=== PATIENT | female | born 1965 | race Caucasian/White ===

== ENCOUNTER → 2020-06-08 15:34 | Outpatient (CLI) | payer OTHER, BC, SELFPAY ==
--- NOTE | ~2020-06-08 | MM_ITS ---
EXAMINATION: MM screening [facility] BI w en HISTORY: Screening TECHNIQUE: Craniocaudal and mediolateral oblique 3-D tomosynthesis images were obtained and synthetic 2-D images were generated. CAD analysis was submitted and interpreted. COMPARISON: Comparison to multiple prior studies sequentially, with oldest reviewed study dated 02/25. BREAST PARENCHYMAL COMPOSITION: There are scattered areas of fibroglandular density. FINDINGS: There is no evidence of suspicious mass, calcification, or architectural distortion to sugg est malignancy in either breast. There has been no suspicious interval change. IMPRESSION: 1. No mammographic evidence of malignancy. 2. Recommend routine screening mammography in one year. BI-RADS Category 1: Negative Reviewed, dictated and finalized at location A. [facility] [employer]
== END ==
PROVIDERS: Visit Provider Nurse Practitioner
DX: Z12.31 Encounter for screening mammogram for malignant neoplasm of breast (principal)
CPT/HCPCS: 77063; 77067

== ENCOUNTER → 2022-04-01 16:54 | Outpatient (CLI) | payer OTHER, BC, SELFPAY ==
--- NOTE | ~2022-04-01 | MM_ITS ---
EXAMINATION: MM screening [facility] BI w en HISTORY: Screening mammogram TECHNIQUE: Craniocaudal and mediolateral oblique 3-D tomosynthesis images were obtained and synthetic 2-D images were generated. CAD analysis was submitted and interpreted. COMPARISON: 06/08/2020, 05/18/2019, 05/15/2018 BREAST PARENCHYMAL COMPOSITION: The breasts are almost entirely fatty. FINDINGS: There is no suspicious mass, calcification, or architectural distortion to suggest malignan cy in either breast. There has been no suspicious interval change. IMPRESSION: 1. No mammographic evidence of malignancy. 2. Recommend routine screening mammography in one year. BI-RADS Category 1: Negative Reviewed, dictated and finalized at location A.
== END ==
PROVIDERS: PCP Internal Medicine; Visit Provider Obstetrics & Gynecology Gynecology
DX: Z12.31 Encounter for screening mammogram for malignant neoplasm of breast (principal)
CPT/HCPCS: 77063; 77067

== ENCOUNTER 2023-07-21 12:02 | Outpatient (CLI) | payer OTHER, SELFPAY ==
--- NOTE | ~2023-07-21 | DEXA_ITS ---
Bone Density Report Name: HUMBERTO BURTON Age: 58 Sex: Female Ethnicity: White Date of : 1965 Indication: postmenopausal; screening for osteoporosis; Referring Provider: Sherry Lema Study: Bone densitometry was performed. Exam Date: July 21, 2023 Accession number: [id number] Bone Density: Region BMD T-score Z-score Classification AP Spine(L1-L4) 1.052 0.0 1.5 Normal Femoral Neck (Left) 0.768 -0.7 0.6 Normal Total Hip (Left) 0.927 -0.1 0.8 Normal Femoral Neck (Right) 0.759 -0.8 0.5 Normal Total Hip (Right) 0.836 -0.9 0.1 Normal Femoral Neck Mean 0.763 -0.8 0.5 Normal Total Hip Mean 0.882 -0.5 0.5 Normal World Health Organization criteria for BMD impression classify patients as: Normal (T-score at or above -1.0), Osteopenia (T-score between -1.0 and -2.5), or Osteoporosis (T-score at or below -2.5). 10-year Fracture Risk: FRAX not reported because: All T-scores for Spine Total, Hip Total, Femoral Neck at or above -1.0 Clinical Information Provided by Patient: Has used the following medications: Vitamin D, multi Patient maximum height was 65 Menopause Age: 50 Drinks caffeinated beverages Onset of menses at age 10 Number of children 2 Impression: The patient has normal bone mass. Discussion: BONE DENSITY IS ABOVE THE MINIMUM DESIRABLE LEVEL AT ALL SKELETAL SITES TESTED. This patient?s bone mineral density is above the minimum desirable level (T-score -1.0 or better) at all sites measured. The patient should follow a healthful lifestyle (good nutrition with adequate calcium and vitamin D, and appropriate weight-bearing exercise). Follow-Up: Consider repeating this study in 5 years or sooner if there is some new clinical indication. Reported by: Dr. Girma Mccarty on 07/21/2023 12:42:00 PM. Reviewed, dictated and finalized at location A.
--- NOTE | ~2023-07-21 | MM_ITS ---
EXAMINATION: MM screening [facility] BI w en HISTORY: Screening TECHNIQUE: Craniocaudal and mediolateral oblique 3-D tomosynthesis images were obtained and synthetic 2-D images were generated. CAD analysis was submitted and interpreted. COMPARISON: No prior mammogram is available for comparison at this institution. BREAST PARENCHYMAL COMPOSITION: Breast composition is almost entirely fatty FINDINGS: There is no evidence of suspicious mass, calcification, or architectural distortion to sugg est malignancy in either breast. There has been no suspicious interval change. IMPRESSION: 1. No mammographic evidence of malignancy. 2. Recommend routine screening mammography in one year. BI-RADS Category 1: Negative Reviewed, dictated and finalized at location A. CARGOMAN
== END 2023-07-21 12:03 | disposition home or self-care (01) ==
PROVIDERS: PCP Internal Medicine; Visit Provider Obstetrics & Gynecology Gynecology
DX: Z12.31 Encounter for screening mammogram for malignant neoplasm of breast (principal); Z78.0 Asymptomatic menopausal state
CPT/HCPCS: 77063; 77067; 77080

== ENCOUNTER 2024-08-14 12:25 | Outpatient (CLI) | payer OTHER, SELFPAY ==
--- NOTE | ~2024-08-14 | MM_ITS ---
EXAMINATION: MM screening katey BI w en HISTORY: Screening TECHNIQUE: Craniocaudal and mediolateral oblique 3-D tomosynthesis images were obtained and synthetic 2-D images were generated. CAD analysis was submitted and interpreted. COMPARISON: Comparison to multiple prior studies sequentially, with oldest reviewed study dated 04/03. BREAST PARENCHYMAL COMPOSITION: Not Dense: The breasts are almost entirely fatty. FINDINGS: There is no evidence of suspicious mass, calcification, or architectural distortion to sugg est malignancy in either breast. There has been no suspicious interval change. IMPRESSION: 1. No mammographic evidence of malignancy. 2. Recommend routine screening mammography in one year. BI-RADS Category 1: Negative Reviewed, dictated and finalized at location B. ANIMAL TECHNOLOGIST
--- OUTSIDE RECORDS SUMMARY | 2024-08-14 12:30 | XMS_ITS | Clinical Summary ---
Author Organization [facility] at the Medical Office Building Address [address] [place] [address] Care Team Providers Care Recruiting Scheduler Name Role Phone Jhui Carbajal MD Primary Care Provider Rasheeda Underwood TOUCH UP PAINTER Unavailable [phone] Allergies No known active allergies Medications multivitamin with minerals tablet Take 1 tablet by mouth Active ergocalciferol (VITAMIN D) 50,000 unit capsule TAKE 1 CAPSULE BY MOUTH 3 TIMES MONTHLY WITH A MEAL 0 Active aspirin 81 mg enteric coated tabletIndications:H yperlipidemia, unspecified hyperlipidemia type TAKE 1 TABLET BY MOUTH EVERY DAY 90 tablet 3 1 Active coenzyme Q10 200 mg capsule Take 1 capsule (200 mg total) by mouth daily Active TURMERIC ORAL Take 1,000 mg by mouth daily Active propranolol LA (INDERAL LA) 80 mg 24 hr capsule Take 1 capsule (80 mg total) by mouth daily 90 capsule 3 4 Active topiramate (TOPAMAX) 100 mg tablet Take 1 tablet (100 mg total) by mouth nightly 90 tablet 3 4 Active hydroxychloroquine (PLAQUENIL) 200 mg tabletIndications:S jogren's syndrome, with unspecified organ involvement (HCC) Take 1.5 tablets (300 mg total) by mouth daily 135 tablet 2 4 Active rizatriptan WARP TESTER (MAXALT-WARP TESTER) 10 mg disintegrating tabletIndications:C hronic migraine without aura, not intractable, without status migrainosus TAKE 1 TAB BY MOUTH ONCE NEEDED FOR MIGRAINE. MAY REPEAT IN 2 HOURS IF UNRESOLVED. MAX 3 TAB/24HR 9 tablet 2 5 Active Active Problems Problem Noted Date Diagnosed Date Sleep concern 08/23/2021 Assessment & Plan (11/22/2021 4:44 PM CDT): Will await sleep study for evaluation of education dean headaches, hypertension, fatigue. Pain in both upper extremities 04/12/2021 Assessment & Plan (04/12/2021 4:45 PM CDT): Asks about pain in arms, recent Attributes to statin, which she stopped a couple weeks ago with slight benefit so far Reports numbness/tingling in arms and feeling of weakness holding arms up. Exam is normal, including normal confrontational strength, reflexes, sensation. Not clear to me this sounds like statin induced myalgia, which are typically more proximal and I would not necessarily expect paresthesias with that. We discussed option of obtain EMG/NCS or Cspine imaging, although given normal exam and some improvement after recent medication discontinuation, will monitor for further improvement to determine if further testing necessary and she will call if change/worsening/new symptom We discussed symptoms of cervical spine stenosis/impingement that should prompt call to office Insomnia 09/04/2020 Assessment & Plan (09/04/2020 4:36 PM HOUSING RELOCATION): Has improved with amitriptyline Migraine 03/05/2020 Assessment & Plan (08/23/2021 2:03 PM HOUSING RELOCATION): 56 year old who presents for follow-up Amitriptyline 75 and Emgality helping some, but she thinks topamax wean has lead to worsened headache. Will restart topamax 50 mg She exclusively has headaches on awakening/2 AM and I discussed option for sleep assessment as well given her accidental weekend napping and headaches on awakening to assess for occult DEBORA. Call in 3-4 weeks to discuss further increase in topamax RTC in 3- 6 months Assessment & Plan (06/05/2020 4:08 PM HOUSING RELOCATION): Continues to get about 4 headaches per month Sleeping better with amitriptyline, no clear side effects Increase to 50 mg as the next step, reviewed side effects Will continue topamax 100 BID and she remains on propranolol 80 for blood pressure management Consider Aimovig 70 as next step if titration not tolerated or 100 mg of amitriptyline not effective RTC in 3 months, call if issue/concern Encouraged efforts at hydration, adequate sleep, exercise. I was with the patient for over 15 minutes in face to face time and spent >50% of the visit reviewing pertinent test results with the patient, counseling them on medication management options and lifestyle changes that could benefit symptoms, answering their questions, and discussing follow-up planning Assessment & Plan (03/05/2020 10:50 AM CDT): 55 year old with 50 year history of migraines that have unfortunately not improved following menopause. She gets 4-8 migraine days per month, no significant aura history. Patient reports the following headache risk factors: Borderline analgesic overuse, inadequate sleep, poor hydration, lack of cardiovascular exercise, stress/anxiety, family history, I reviewed all these factors at length with the patient and suggested treatment plan should include focused effort to reduce these lifestyle contributions to headache risk. We also discussed headache prevention and abortive medications, including: She has not tolerated or seen benefit from higher dose of propranolol. Stopping propranolol also lead to hypertension so has stayed on low dose. She is on topamax 100 BId She has not tried TCA or SNRI, and given her sleep difficulty I suggested amitriptyline 25 mg as next step. I reviewed side effects. I introduced CGRP as next option if this fails. Will start 25 qHS, call in 3-4 weeks for further titration RTC in 3 months Sjogren's syndrome 01/16/2020 Chronic migraine without aur a without status migrainosus, not intractable 08/09/2019 Overview (08/09/2019): - worse with weather changes - some months having 3-4x/wk and other months none - Currently on inderal and topamax with maxalt for acute sx - pt interested in trial without topamax to see if number of migranes increases. Assessment & Plan (11/22/2021 4:47 PM CDT): Discouraged by increase after initial improvement with aimovig (while on topamax/propranolol/amitriptyline) Having about 2 per week currently, she is off propranolol, but reintroduction of topamax without prominent benefit. She is due to end school year on , which historically leads to improvement in headaches. I advised not changing medication at this time to see if benefit. Sleep evaluation due next month, she is agreeable to continuing current management pending that evaluation, but could consider reintroducing propranolol. IN retrospect she wonders if propranolol/topamax combination most effective, in which case amitriptyline could be weaned, but again will defer this pending end of school year and sleep eval RTC in 3 months, call/message with updated [facility] as well, given possibility of switch to oral CGRP ultimately if emgality not felt to be adequately beneficial/sleep study unrevealing. Assessment & Plan (04/12/2021 4:43 PM CDT): On aimovig 70 mg with good benefit, one headache per month, usually around when due for injection, responds to maxalt. She has eliminated propranolol without change in headache, discussed weaning some of her other medications - will reduce topamax to 50/100 and continue amitriptyline 75 mg, would wean topamax every month as tolerated. Consider increase in Aimovig to 140 mg if change in headaches during wean RTC in 3-6 months, but call for medication adjustment/wean in interim Assessment & Plan (12/04/2020 1:53 PM CDT): Significant benefit to aimovig 70, has not needed acute treatment in months. Very happy with response. Would continue current management for another few months, but if continuing to do well, would consider weaning topamax or propranolol as next step. Would like eliminate propranolol 1st (every other day x 2 weeks then off) if no alternate benefit to continuing (since amitriptyline has helped sleep considerably) If doing well with that change, would then start weaning topamax. RTC in 3-6 months and can start wean if doing well at that time Call if change/issue in interim and can use Maxalt PRN for any breakthrough headaches in meantime. Assessment & Plan (09/04/2020 4:35 PM HOUSING RELOCATION): Headaches stable although patient remains frustrated they continue to occur. We discussed options, including accepting this is 'good enough' as maxalt dose generally work to knock out headache and they are not limiting. We discussed optimizing amitriptyline to 100, although has not seemed to have any additional benefit other than sleep benefit at 25-50 mg dose. We discussed aimovig injections. After discussion, including of side effects including constipation, injection reactions, hypertension, she would like to start aimovig and see if we can ultimately reduce some of the other medications. Will start 70 mg dose, reassess in 3 months Continue maxalt PRN call if issue/change otherwise. Assessment & Plan (08/09/2019 4:38 PM HOUSING RELOCATION): - stable - continue inderal and maxalt - trial without topamax, if no increase in migraines then remain off of it Primary osteoarthritis involving multiple joints 08/09/2019 Overview (08/09/2019): - pt with OA and Rheumatoid - currently using voltaren gel for hands Assessment & Plan (08/09/2019 4:39 PM HOUSING RELOCATION): - stable - continue voltaren Gastroesophageal reflux disease without esophagi tis 08/09/2019 Overview (08/09/2019): - pt currently on omeprazole for GERD sx - pt takes med every few days as needed - had previously been on zantac Assessment & Plan (08/09/2019 4:40 PM HOUSING RELOCATION): - stable - discussed how PPIs work - continue omeprazole for GERD sx Chronic left-sided low back pain with left-sided sciatica 02/06/2019 Hyperlipidemia 02/06/2019 Overview (08/09/2019): - Pt has been on atorvastatin for 6 months. - Pt unable to tolerated 40mg atorvastatin so currently on 20mg; last LDL 182 Assessment & Plan (08/09/2019 4:36 PM HOUSING RELOCATION): - check lipid test - continue atorvastatin Pain in joint, shoulder region 01/10/2019 Rhinorrhea 01/10/2019 Sensorineural hearing loss (SNHL) of both ears 0 01/10/2019 Tinnitus of both ears 01/10/2019 Pain in soft tissues of limb 12/03/2012 Encounters Date Type Department Care Team Description 08/08/2024 Documentation [facility] Rheumatology [address] [place] [address] [place] [address] Lena Sumner CMA Eye Exam from Last 3 Months Immunizations Name Administration Dates Next Due DTaP 01/31/2018 Influenza, Quadrivalent, Lore l Culture-based MDCK, Preservative Free, Antibiotic Free, Intramuscular 03/30/2019 Influenza, Quadrivalent, Spl it, Preservative Free, Intramuscular 03/12/2022,03/15/2020,04/27/2018,05/29 Influenza, Trivalent, Cell Culture-based MDCK, Preservative Free, Antibiotic Free, Intramuscular 03/10/2023 Influenza, Unspecified 04/02/2021 Pfizer SARS-CoV-2 Monovalent Vaccination (12+ Yrs) PURPLE 06/21/2021,08/24/2020,08/03/2020 ZOSTER Recombinant 12/19/2017,09/03/2017 Surgical History Surgery Date Site/Laterality Comments CHOLECYSTECTOMY SECTION SHOULDER ARTHROSCOPY W/ LABRAL REPAIR DILATION AND CURETTAGE OF UTERUS Medical History Medical History Date Comments Headache GERD (gastroesophageal reflux disease) Vitamin D deficiency Sjogren's disease (HCC) Migraines 5 years old Family History Medical History Relation Name Comments Heart disease Brother 1 Andrea Genesis Jr. Hypertension Brother 2 Andrea JosiaseffJr. Heart attack Father Andrea Gushleff Sr. Heart disease Father Andrea Gushleff Sr. Cerebral palsy Father's Brother Rowdy Ferraraeff Arthritis Maternal Grandmother Both grandmothers Heart disease Mother Shannon Genesis Stroke Mother Shannon Genesis Hypertension Sister Elina Richards Relation Name Status Comments Brother 1 Andrea Gushleff Jr. Alive Brother 2 Andrea GushleffJr. Alive Father Andrea Gushleff Sr. Alive Father's Brother Rowdy Stewarthleff Maternal Grandmother Both grandmothers Mother Shannon Kemalmariah Sister Elina Daude Alive Social History Tobacco Use Types Packs/Day Years Used Date Smoking Tobacco: Never Smokeless Tobacco: Never Tobacco Cessation:Counseling Given: Not Answered Alcohol Use Standard Drinks/Week Comments Never 0 (1 standard drink = 0.6 oz pur e alcohol) social AUDIT-C Answer Date Recorded Q1: How often do you have a drink containing alc ohol? Monthly or less 01/18/2021 Q2: How many drinks containi ng alcohol do you have on a typical day when you are drinking? 1 or 2 01/18/2021 Frequency of Binge Drinking Not on file 12/31 PHQ-2 Answer Date Recorded PHQ-2 Total Score (If total score is 3 or more points, staff should administer the PHQ-9) 0 02/14/2024 Personal Safety Answer Date Recorded Getting School Help Needed Not on file 07/14 Comments Unknown Sex and Gender Information Value Date Recorded Sex Assigned at Not on file Legal Sex Female 11:51 PM HOUSING RELOCATION Gender Identity Female 05/30/2020 7:51 AM HOUSING RELOCATION Sexual Orientation Straight 05/30/2020 7: 51 AM HOUSING RELOCATION Obstetrics History Last Filed Vital Signs Vital Sign Reading Time Taken Comments Blood Pressure 120/72 02/14/2024 2:50 PM CDT Pulse 51 02/14/2024 2:28 PM CDT Temperature 36.7 C (98 F) 02/14/2024 2:28 PM CDT Respiratory Rate 18 11/22/2021 3:53 PM CDT Oxygen Saturation 97% 02/14/2024 2:28 PM CDT Inhaled Oxygen Concentration - - Weight 71.7 kg (158 lb) 02/14/2024 2:28 PM CDT Height 165.1 cm (5' 5 ) 02/14/2024 2:28 PM CDT Body Mass Index 26.29 02/14/2024 2:28 PM CDT Plan of Treatment Health Maintenance Due Date Last Done Comments Breast Cancer Screening-Mammogram 1965 Colon Cancer Screening-Colonoscopy 1965 Hepatitis C Screening 1965 Pneumococcal vaccine <65 (1 of 2 - PCV) 1969 Hepatitis B Screening 1981 Covid-19 Vaccine (2023-2 5 season) 2024 04/19/2022, 01/20/2022, 06/21/2021, Additional history exists Depression Screening 02/13/2025 02/14/2024, 12/18/2023, 01/25/2023, Additional history exists Regular Well Visit/Exam 18-64 02/13/2025, 01/25/2023, 01/19/2022, Additional history exists Cervical Cancer Screening 04/19/2026 04/19/2021 DTaP/Tdap/Td Vaccine (2 - Tdap) 02/01/2028 8 Zoster Vaccine Completed 12/19/2017, 09/03/2017 Influenza Vaccine Completed 04/11/2024, , 03/12/2022, Additional history exists Procedures Procedure Name Priority Date/Time Associated Diagnosis Comments HM PAP SMEAR WITH HPV Routine 04/19/2021 from Last 3 Months or Most Recently Relevant to Health Maintenance Results * PAP SMEAR WITH HPV (04/19/2021) 04/19/2021 us Historical Provider HEALTH MAINTENANCE Final Result from Last 3 Months or Most Recently Relevant to Health Maintenance Insurance [facility] CHOICE PLUS [facility] CHOICE PLUS UHC CHOICE PLUS [facility] [id number] [facility] [id number] [facility] CHOICE PLUS Care Teams Recruiting Scheduler Relationship Specialty Start Date End Date Juhi Carbajal MD PCP - General Internal Medicine 01/16/20 Rasheeda Underwood, TOUCH UP PAINTER [address] [address] Manager Of Training And Development Physical Therapy 09/04/23
--- OUTSIDE RECORDS SUMMARY | 2024-08-14 12:30 | XMS_ITS | Continuity of Care Document ---
Author Organization [facility] Address [address] [place] [phone] Phone Care Team Providers Care Ultrasound Spec Name Role Phone Darvin Montgomery MD Unavailable Unavailable Allergies, Adverse Reactions, Alerts Substance Reaction Status Criticality No Known Allergies Active No Inform ation Procedures Procedure Date Special Narrative Report Special Narrative Report X-ray exam shoulder minimun 2 views Independent Medical Examination JOSH Advance Directives Directive Yes / No Effective Date File Name No Information Encounters Encounter Description Practice Location Reason(s) For Visit Diagnoses Date Provider Providers Copied on Encounter [facility], [address], [address] [place] [address], tel:[phone] No Information 4 Ulises Boston. [facility] [address], [id number] , [place]. tel: [phone] [facility], [address] [place] [address], [id number], [place] tel:[phone] [facility] No Information 4 Ulises Boston. [address] [place] [address], [id number] , [place]. tel: [phone] [facility], [address] [place] [address], [id number], tel:[phone] [facility] No Information 3 Ulises Boston. [address] [address], [place], [place], [id number] , [place]. tel: [phone] Independent Medical Examination JOSH [facility], [address], [place], [place], [id number], tel:[phone] [facility] right shoulder JOSH (chief complaint) PAIN IN LIMBJOINT PAIN-SHLDER 3-201 3 Montgomery Darvin. [address] [facility], [address], [place], [place], [id number] , [place]. tel: [phone] Family History Family Member Type Diagnosis Age At Onset No Information Immunizations Vaccine Date Status Comments Flu (split) (3 yrs or older) administered Source: New Immunization Record Payers Payer name Insurance type Covered democrat ID Authoriza tion(s) No Information Social History Type Description Quantity Date Captured Comments Sex Female Smoking Status No Information Chief Complaint And Reason For Visit No Information Reason For Referral Reason For Referral No Information Plan Of Treatment Date Type Action Status Referral Ordered: X-ray exam shoulder minimun 2 views RT ordered History Of Present Illness Encounter Date Complaint History Of Prese nt Illness No Information Functional Status Date Functional Assessmen t No Information Instructions Date Instruction Additional Infor mation No Information Assessments Type Assessment Date No Information Patient Care Teams Name Effective Dates (start - stop) Status Members No Information
--- OUTSIDE RECORDS SUMMARY | 2024-08-14 12:30 | XMS_ITS | Referral Summary ---
Author Organization [facility] Address [address] [place] [address] Care Team Providers Care Ob Nurse Name Role Phone Juhi Carbajal MD Primary Care Provider Rasheeda Underwood CAN CLOSING MACHINE OPERATOR Unavailable Encounters Date Type Department Care Team Description 08/08/2024 Documentation [facility] Rheumatology [facility] Medicine 5th [place] [address] [place] [address] Lena Sumner CMA Eye Exam from Last 3 Months Allergies No known active allergies Medications multivitamin [...] daily 135 tablet 2 4 Active rizatriptan LABORER ORCHARD (MAXALT-LABORER ORCHARD) 10 mg disintegrating tabletIndications:C hronic migraine without aura, not intractable, without status migrainosus TAKE 1 TAB BY MOUTH ONCE NEEDED FOR MIGRAINE. MAY REPEAT IN 2 HOURS IF UNRESOLVED. MAX 3 TAB/24HR 9 tablet 2 5 Active Active Problems Problem Noted Date Diagnosed Date Sleep concern 08/23/2021 Assessment & Plan (11/22/2021 4:44 PM CDT): Will await sleep study for evaluation of cutter plastics rolls headaches, hypertension, fatigue. Pain in both upper [...] 09/04/2020 Assessment & Plan (09/04/2020 4:36 PM PORTER MARINA): Has improved with amitriptyline Migraine 03/05/2020 Assessment & Plan (08/23/2021 2:03 PM PORTER MARINA): 56 year old who presents for follow-up [...] months Assessment & Plan (06/05/2020 4:08 PM PORTER MARINA): Continues to get about 4 headaches per [...] months, call/message with updated I provided with [facility] sample to see if benefit as well, [...] meantime. Assessment & Plan (09/04/2020 4:35 PM PORTER MARINA): Headaches stable although patient remains frustrated they [...] otherwise. Assessment & Plan (08/09/2019 4:38 PM PORTER MARINA): - stable - continue inderal and maxalt - trial without topamax, if no increase in migraines then remain off of it Primary osteoarthritis involving multiple joints 08/09/2019 Overview (08/09/2019): - pt with OA and Rheumatoid - currently using voltaren gel for hands Assessment & Plan (08/09/2019 4:39 PM PORTER MARINA): - stable - continue voltaren Gastroesophageal reflux disease without esophagi tis 08/09/2019 Overview (08/09/2019): - pt currently on omeprazole for GERD sx - pt takes med every few days as needed - had previously been on zantac Assessment & Plan (08/09/2019 4:40 PM PORTER MARINA): - stable - discussed how PPIs work - continue omeprazole for GERD sx Chronic left-sided low back pain with left-sided sciatica 02/06/2019 Hyperlipidemia 02/06/2019 Overview (08/09/2019): - Pt has been on atorvastatin for 6 months. - Pt unable to tolerated 40mg atorvastatin so currently on 20mg; last LDL 182 Assessment & Plan (08/09/2019 4:36 PM PORTER MARINA): - check lipid test - continue atorvastatin Pain in joint, shoulder region 01/10/2019 Rhinorrhea 01/10/2019 Sensorineural hearing loss (SNHL) of both ears 0 01/10/2019 Tinnitus of both ears 01/10/2019 Pain in soft tissues of limb 12/03/2012 Immunizations Name Administration Dates Next Due DTaP 01/31/2018 Influenza, Quadrivalent, Lore l Culture-based MDCK, Preservative Free, Antibiotic Free, Intramuscular 03/30/2019 Influenza, Quadrivalent, Spl it, Preservative Free, Intramuscular 03/12/2022,03/15/2020,04/27/2018,05/29 Influenza, Trivalent, Cell Culture-based MDCK, Preservative Free, Antibiotic Free, Intramuscular 03/10/2023 Influenza, Unspecified 04/02/2021 Expediciones.mx SARS-CoV-2 Monovalent Vaccination (12+ Yrs) PURPLE 06/21/2021,08/24/2020,08/03/2020 ZOSTER Recombinant 12/19/2017,09/03/2017 Social History Tobacco Use Types Packs/Day Years [...] on file Legal Sex Female 11:51 PM PORTER MARINA Gender Identity Female 05/30/2020 7:51 AM PORTER MARINA Sexual Orientation Straight 05/30/2020 7: 51 AM PORTER MARINA Last Filed Vital Signs Vital Sign Reading [...] 02/14/2024 2:28 PM CDT Plan of Treatment Not on file Procedures Procedure Name Priority Date/Time Associated Diagnosis Comments PAP SMEAR WITH HPV Routine 04/19/2021 from Last 3 Months or Most Recently Relevant to Health Maintenance Results * PAP SMEAR WITH HPV (04/19/2021) 04/19/2021 Historical Provider HEALTH MAINTENANCE Final Result from Last 3 Months or Most Recently Relevant to Health Maintenance Insurance [facility]/PPO Address: [facility] [address] [place] [address] [facility]/PPO Address: [address] [address] [place] [address] [facility]/PPO Address[facility] [address] [place] [id number] [facility] [id number] [facility] [id number] [facility] H[facility]/PPO Address: [address] [address] [place] [address] Care Teams Ob Nurse Relationship Specialty Start Date End Date Juhi Carbajal MD PCP - General Internal Medicine 01/16/20 Rasheeda Underwood, CAN CLOSING MACHINE OPERATOR [address] [facility] [address] [place] [address] Marketing Clerk Physical Therapy 09/04/23
--- OUTSIDE RECORDS SUMMARY | 2024-08-14 12:31 | XMS_ITS | Clinical Summary ---
Author Organization [facility] Address [address] [facility] [place] [address] Care Team Providers Care Forestry Workers Name Role Phone Ellis Cueto MD Primary Care Provider [phone] Source Comments [facility],non-owned Affiliates and Associated Physician Practices is amultiple site organization consisting of ambulatory clinics and hospital sitesin [place], [place], [place] and [place]. This disclosure is being madepursuant to the Care Everywhere program and may not contain all information available regarding this patient. Last updated 18.[facility] Allergies No known active allergies Medications * Be aware that medications may not be up to date on this document. Alwaysverify current medications with the patient. Medication Sig Dispensed Refills Start Date End Date Status vitamin D, ergocalciferol, (DRISDOL) 73082 UNITS capsule Take 1 capsule by mouth every 10 days 3 10/01/2017 Active propranolol (INDERAL) 80 MG tablet Take 80 mg by mouth once daily Active topiramate (TOPAMAX) 100 MG tablet Take 100 mg by mouth 2 times daily Active rizatriptan, disintegrating, (MAXALT LIQUOR STORE MANAGER) 10 MG tablet Take 10 mg by mouth daily as needed - may repeat one time for Migraine No more than 30 mg in a 24 hour period. Active Multiple Vitamins-Minerals (MULTIVITAMIN & MINERAL PO) Take 1 tablet by mouth once daily Active omeprazole EC ([facility] OMEPRAZOLE) 20 MG tablet Take 20 mg by mouth once daily as needed Active hydroxychloroquine (PLAQUENIL) 200 MG tabletIndications:Sjogren 's syndrome with keratoconjunctivitis sicca (HCC),RADHA positive,Polyarthralgia TAKE 1.5 TABLETS BY MOUTH ONCE DAILY 135 tablet 2 05/20/2019 Active Active Problems Patient Care Coordination No te Formatting of this note migh t be different from the original. Primary Bobydenilson Fatima in [place] not in system Problem Noted Date Diagnosed Date Pain in joint, shoulder region 01/10/2019 Tinnitus of both ears 01/10/2019 Sensorineural hearing loss (SNHL) of both ears 0 01/10/2019 Rhinorrhea 01/10/2019 Pain in soft tissues of limb 12/03/2012 Immunizations Name Administration Dates Next Due DTaP VACCINE IM (6wk-6yrs) 01/31/2018 INFLUENZA VACCINE, QUADR. (F LUZONE; FLULAVAL; FLUARIX; AFLURIA QUADRIVALENT; 6MO+), 0.5 ML (IIV4) 04/27/2018 Family History Medical History Relation Name Comments Hypertension Brother Hyperlipidemia Father Hypertension Father CVA Mother Hyperlipidemia Mother Hypertension Mother Hypertension Sister Relation Name Status Comments Brother Father Mother Sister Social History Tobacco Use Types Packs/Day Years Used Date Smoking Tobacco: Never Smokeless Tobacco: Never Alcohol Use Standard Drinks/Week Comments Yes 0 (1 standard drink = 0.6 oz pur e alcohol) rarely Sex and Gender Information Value Date Recorded Sex Assigned at Not on file Gender Identity Not on file Sexual Orientation Not on file Last Filed Vital Signs Vital Sign Reading Time Taken Comments Blood Pressure 126/78 01/10/2019 2:32 PM CDT Pulse 65 01/10/2019 2:32 PM CDT Temperature 36.8 C (98.3 F) 12/18/2018 12:53 PM CDT Respiratory Rate - - Oxygen Saturation - - Inhaled Oxygen Concentration - - Weight 68.5 kg (151 lb) 01/10/2019 2:32 PM CDT Height 165.1 cm (5' 5 ) 01/10/2019 2:32 PM CDT Body Mass Index 25.13 01/10/2019 2:32 PM CDT Plan of Treatment Health Maintenance Due Date Last Done Comments COLOGUARD (AGES 45-75) - COLON CA SCREENING 1963 COLON MONITORING 1963 COLONOSCOPY - COLON CA SCREENING 1963 CT COLONOGRAPHY - COLON CA SCREENING 1963 Colorectal Cancer Screening 1963 FIT - COLON CA SCREENING 1963 FLEX SIG - COLON CA SCREENING 1963 LIPID TESTING 1963 PAP SMEAR 1963 HIV SCREENING 1978 HEPATITIS C SCREENING 02/27/1981 PNEUMOCOCCAL VACCINE 50+ (1 of 1 - PCV) 2013 ZOSTER VACCINE (1 of 2) 2013 MAMMOGRAM 05/03/2020 05/03/2018 (Done Outside Per Patient) SCREENING FOR DIABETES 12/18/2021 9, 06/13/2018, 12/07/2017 COVID-19 VACCINE (1 - 2023-2 5 season) 2024 INFLUENZA VACCINE (#1) 2024 04/27/2018 DEPRESSION SCREENING 07/03/2024 DTAP/TDAP/TD VACCINES (2 - Tdap) 02/01/2028 01/31/2018 Respiratory Syncytial Virus (RSV) Vaccine Pt: or over 60 yrs (1 - 1-dose 75+ series) 2038 HEPATITIS B VACCINE Aged Out No longe r eligible based on patient's age to complete this topic HIB VACCINE Aged Out No longer eligi ble based on patient's age to complete this topic HPV VACCINE Aged Out No longer eligi ble based on patient's age to complete this topic MENINGOCOCCAL (Group B) VACCINE Aged Out No longer eligible based on patient's age to complete this topic MENINGOCOCCAL VACCINE Aged Out No kris sherry eligible based on patient's age to complete this topic PNEUMOCOCCAL VACCINE Aged Out No long er eligible based on patient's age to complete this topic Procedures Procedure Name Priority Date/Time Associated Diagnosis Comments COMPREHENSIVE METABOLIC PANEL Routine 12/18/2018 2:59 PM CDT Sjogren's syndrome, with unspecified organ involvement (HCC) Therapeutic drug monitoring Tinnitus of both ears from Last 3 Months or Most Recently Relevant to Health Maintenance Results * (ABNORMAL) COMPREHENSIVE METABOLIC PANEL (12/18/2018 2:59 PM CDT) Glucose 96 65 - 99 mg/dL [facility] INSURANCE BILL BUN 14 6 - 24 mg/dL [facility] INSURANCE BILL Creatinine 0.92 0.57 - 1.00 mg/dL [facility] INSURANCE BILL eGFR by MDRD 70 >59 mL/min/1.7 3 [facility] INSURANCE BILL eGFR by MDRD 81 >59 mL/min/1.7 3 [facility] INSURANCE BILL BUN/Creatinine Ratio 15 9 - 23 [facility] INSURANCE BILL Sodium 142 134 - 144 mmol/L [facility] INSURANCE BILL Potassium 4.1 3.5 - 5.2 mmol/L [facility] INSURANCE BILL Chloride 104 96 - 106 mmol/L [facility] INSURANCE BILL CO2 25 20 - 29 mmol/L [facility] INSURANCE BILL Calcium 10.3(H) 8.7 - 10.2 mg/dL [facility] INSURANCE BILL Protein Total 7.4 6.0 - 8.5 g/dL [facility] INSURANCE BILL Albumin 5.0 3.5 - 5.5 g/dL [facility] INSURANCE BILL Globulin Total 2.4 1.5 - 4.5 g/dL [facility] INSURANCE BILL Albumin/Globulin Ratio 2.1 1.2 - 2.2 [facility] INSURANCE BILL Bilirubin Total 0.5 0.0 - 1.2 mg/dL [facility] INSURANCE BILL Alkaline Phosphatase 51 39 - 117 IU/L [facility] INSURANCE BILL AST 25 0 - 40 IU/L [facility] INSURANCE BILL ALT 20 0 - 32 IU/L [facility] INSURANCE BILL Blood BLOOD SPECIMEN / Unknown 12/18/2018 2:59 PM CDT 12/18/2018 Narrative Resulting Agency Comment [facility] [address] [facility] [id number] Fili Aldana MD LAB - CHEMISTRY RENÉE CARO [facility] INSURANCE BILL [address] [place] [address] from Last 3 Months or Most Recently Relevant to Health Maintenance Care Teams Forestry Workers Relationship Specialty Start Date End Date lElis Cueto MD [facility] [place] [address] PCP - General 01/31/19
--- OUTSIDE RECORDS SUMMARY | 2024-08-14 12:31 | XMS_ITS | Patient Health Summary ---
Author Organization [facility] uShare Address [address] [place] [address] Care Team Providers Care Supervisor Paint Department Name Role Phone Ellis Cueto MD Primary Care Provider [phone] Note from [facility] [place],non-owned Affiliates and Associated Physician Practices is amultiple site organization consisting of ambulatory clinics and hospital sitesin [place], [place], [place] and [place]. This disclosure is being madepursuant to the Care Everywhere program and may not contain all information available regarding this patient. Last updated 18.[facility] Allergies No known active allergies Medications * Be aware that medications may not be up to date on this document. Alwaysverify current medications with the patient. * vitamin D, ergocalciferol, (DRISDOL) 77537 UNITS capsule(Started 10/01/2017) Take 1 capsule by mouth every 10 days 3 refills left * propranolol (INDERAL) 80 MG tablet Take 80 mg by mouth once daily * topiramate (TOPAMAX) 100 MG tablet Take 100 mg by mouth 2 times daily * rizatriptan, disintegrating, (MAXALT COLORED LEATHER SETTER) 10 MG tablet Take 10 mg by mouth daily as needed - may repeat one time for Migraine No more than 30 mg in a 24 hour period. * Multiple Vitamins-Minerals (MULTIVITAMIN & MINERAL PO) Take 1 tablet by mouth once daily * omeprazole EC ([facility] OMEPRAZOLE) 20 MG tablet Take 20 mg by mouth once daily as needed * hydroxychloroquine (PLAQUENIL) 200 MG tablet(Started 05/20/2019) TAKE 1.5 TABLETS BY MOUTH ONCE DAILY 2 refills remaining Active Problems Problem Noted Date Diagnosed Date Pain in joint, shoulder region 01/10/2019 Tinnitus of both ears 01/10/2019 Sensorineural hearing loss (SNHL) of both ears 0 01/10/2019 Rhinorrhea 01/10/2019 Pain in soft tissues of limb 12/03/2012 Immunizations * DTaP VACCINE IM (6wk-6yrs)(Given 01/31/2018) * INFLUENZA VACCINE, QUADR. (FLUZONE; FLULAVAL; FLUARIX; AFLURIA QUADRIVALENT; 6MO+), 0.5 ML (IIV4)(Given 04/27/2018) Social History Tobacco Use Types Packs/Day Years [...] Mass Index 25.13 01/10/2019 2:32 PM CDT Procedures * [place] EAR MICROSCOPY EXAMINATION(Performed 01/10/2019) Performed for Sensorineural hearing loss (SNHL) of both ears * URINALYSIS MICROSCOPIC ONLY REFLEXED(Performed 12/18/2018) Performed for Sjogren's syndrome, with unspecified organ involvement (HCC), Therapeutic drug monitoring, Tinnitus of both ears * URINALYSIS W/MICROSCOPIC REFLEX TO CULTURE(Performed 12/18/2018) Performed for Sjogren's syndrome, with unspecified organ involvement (HCC), Therapeutic drug monitoring, Tinnitus of both ears * ERYTHROCYTE SEDIMENTATION RATE(Performed 12/18/2018) Performed for Sjogren's syndrome, with unspecified organ involvement (HCC), Therapeutic drug monitoring, Tinnitus of both ears * C-REACTIVE PROTEIN(Performed 12/18/2018) Performed for Sjogren's syndrome, with unspecified organ involvement (HCC), Therapeutic drug monitoring, Tinnitus of both ears * COMPREHENSIVE METABOLIC PANEL(Performed 12/18/2018) Performed for Sjogren's syndrome, with unspecified organ involvement (HCC), Therapeutic drug monitoring, Tinnitus of both ears * CBC W AUTO DIFFERENTIAL(Performed 12/18/2018) Performed for Sjogren's syndrome, with unspecified organ involvement (HCC), Therapeutic drug monitoring, Tinnitus of both ears * CULTURE URINE COMPREHENSIVE(Performed 12/18/2018) Performed for Sjogren's syndrome, with unspecified organ involvement (HCC), Therapeutic drug monitoring, Tinnitus of both ears * EYE EXAM(Performed 09/20/2018) * URINALYSIS MICROSCOPIC ONLY REFLEXED(Performed 06/13/2018) Performed for Sjogren's syndrome, with unspecified organ involvement (HCC), High risk medications (not anticoagulants) long-term use, Long-term use of Plaquenil, Therapeutic drug monitoring * URINALYSIS W/MICROSCOPIC REFLEX TO CULTURE(Performed 06/13/2018) Performed for Sjogren's syndrome, with unspecified organ involvement (HCC), High risk medications (not anticoagulants) long-term use, Long-term use of Plaquenil, Therapeutic drug monitoring * ERYTHROCYTE SEDIMENTATION RATE(Performed 06/13/2018) Performed for Sjogren's syndrome, with unspecified organ involvement (HCC), High risk medications (not anticoagulants) long-term use, Long-term use of Plaquenil, Therapeutic drug monitoring * C-REACTIVE PROTEIN(Performed 06/13/2018) Performed for Sjogren's syndrome, with unspecified organ involvement (HCC), High risk medications (not anticoagulants) long-term use, Long-term use of Plaquenil, Therapeutic drug monitoring * COMPREHENSIVE METABOLIC PANEL(Performed 06/13/2018) Performed for Sjogren's syndrome, with unspecified organ involvement (HCC), High risk medications (not anticoagulants) long-term use, Long-term use of Plaquenil, Therapeutic drug monitoring * CBC W AUTO DIFFERENTIAL(Performed 06/13/2018) Performed for Sjogren's syndrome, with unspecified organ involvement (HCC), High risk medications (not anticoagulants) long-term use, Long-term use of Plaquenil, Therapeutic drug monitoring * CULTURE URINE COMPREHENSIVE(Performed 06/13/2018) Performed for Sjogren's syndrome, with unspecified organ involvement (HCC), High risk medications (not anticoagulants) long-term use, Long-term use of Plaquenil, Therapeutic drug monitoring * EYE EXAM(Performed 03/15/2018) * IGM BLOOD(Performed 03/08/2018) * IGA BLOOD(Performed 03/08/2018) * IGG BLOOD(Performed 03/08/2018) * URINALYSIS MICROSCOPIC ONLY REFLEXED(Performed 12/07/2017) Performed for RADHA positive, Polyarthralgia, Fatigue due to excessive exertion, initial encounter, Hair loss * LUPUS ANTICOAGULANT PANEL(Performed 12/07/2017) Performed for RADHA positive, Polyarthralgia, Fatigue due to excessive exertion, initial encounter, Hair loss * CARDIOLIPIN ANTIBODY IGA(Performed 12/07/2017) Performed for RADHA positive, Polyarthralgia, Fatigue due to excessive exertion, initial encounter, Hair loss * CARDIOLIPIN ANTIBODY IGG(Performed 12/07/2017) Performed for RADHA positive, Polyarthralgia, Fatigue due to excessive exertion, initial encounter, Hair loss * THYROGLOBULIN ANTIBODY(Performed 12/07/2017) Performed for RADHA positive, Polyarthralgia, Fatigue due to excessive exertion, initial encounter, Hair loss * THYROID PEROXIDASE ANTIBODY(Performed 12/07/2017) Performed for RADHA positive, Polyarthralgia, Fatigue due to excessive exertion, initial encounter, Hair loss * URINALYSIS W/MICROSCOPIC REFLEX TO CULTURE(Performed 12/07/2017) Performed for RADHA positive, Polyarthralgia, Fatigue due to excessive exertion, initial encounter, Hair loss * ERYTHROCYTE SEDIMENTATION RATE(Performed 12/07/2017) Performed for RADHA positive, Polyarthralgia, Fatigue due to excessive exertion, initial encounter, Hair loss * C-REACTIVE PROTEIN(Performed 12/07/2017) Performed for RADHA positive, Polyarthralgia, Fatigue due to excessive exertion, initial encounter, Hair loss * COMPREHENSIVE METABOLIC PANEL(Performed 12/07/2017) Performed for RADHA positive, Polyarthralgia, Fatigue due to excessive exertion, initial encounter, Hair loss * CBC W AUTO DIFFERENTIAL(Performed 12/07/2017) Performed for RADHA positive, Polyarthralgia, Fatigue due to excessive exertion, initial encounter, Hair loss * HISTONE ANTIBODY(Performed 12/07/2017) Performed for RADHA positive, Polyarthralgia, Fatigue due to excessive exertion, initial encounter, Hair loss * RHEUMATOID FACTOR BLOOD QUANTITATIVE(Performed 12/07/2017) Performed for RADHA positive, Polyarthralgia, Fatigue due to excessive exertion, initial encounter, Hair loss * ABRASIVE SAWYER ANTIBODY(Performed 12/07/2017) Performed for RADHA positive, Polyarthralgia, Fatigue due to excessive exertion, initial encounter, Hair loss * SINGH (SM) ANTIBODY ZE(Performed 12/07/2017) Performed for RADHA positive, Polyarthralgia, Fatigue due to excessive exertion, initial encounter, Hair loss * SS-A/SS-B (SJOGREN'S) ANTIBODY PANEL(Performed 12/07/2017) Performed for RADHA positive, Polyarthralgia, Fatigue due to excessive exertion, initial encounter, Hair loss * DNA ANTIBODY DS CRITHIDIA IFA(Performed 12/07/2017) Performed for RADHA positive, Polyarthralgia, Fatigue due to excessive exertion, initial encounter, Hair loss * CYCLIC CITRUL PEPTIDE ANTIBODY IGG/IGA (CCP)(Performed 12/07/2017) Performed for RADHA positive, Polyarthralgia, Fatigue due to excessive exertion, initial encounter, Hair loss * COMPLEMENT TOTAL(Performed 12/07/2017) Performed for RADHA positive, Polyarthralgia, Fatigue due to excessive exertion, initial encounter, Hair loss * COMPLEMENT C4(Performed 12/07/2017) Performed for RADHA positive, Polyarthralgia, Fatigue due to excessive exertion, initial encounter, Hair loss * KYLEE STAINING PATTERNS REFLEXED(Performed 12/07/2017) Performed for RADHA positive, Polyarthralgia, Fatigue due to excessive exertion, initial encounter, Hair loss * CARDIOLIPIN ANTIBODY IGM(Performed 12/07/2017) Performed for RADHA positive, Polyarthralgia, Fatigue due to excessive exertion, initial encounter, Hair loss * BETA-2 GLYCOPROTEIN 1 ANTIBODY IGG/IGM/IGA PANEL(Performed 12/07/2017) Performed for RADHA positive, Polyarthralgia, Fatigue due to excessive exertion, initial encounter, Hair loss * COMPLEMENT C3(Performed 12/07/2017) Performed for RADHA positive, Polyarthralgia, Fatigue due to excessive exertion, initial encounter, Hair loss * CHROMATIN ANTIBODY(Performed 12/07/2017) Performed for RADHA positive, Polyarthralgia, Fatigue due to excessive exertion, initial encounter, Hair loss * RADHA BLOOD SCREEN W/REFLEX TITER(Performed 12/07/2017) Performed for RADHA positive, Polyarthralgia, Fatigue due to excessive exertion, initial encounter, Hair loss * XR FOOT RIGHT 3VW OR MORE(Performed 12/07/2017) Performed for RADHA positive, Polyarthralgia, Fatigue due to excessive exertion, initial encounter, Hair loss * XR FOOT LEFT 3VW OR MORE(Performed 12/07/2017) Performed for RADHA positive, Polyarthralgia, Fatigue due to excessive exertion, initial encounter, Hair loss * XR HAND RIGHT 3VW OR MORE(Performed 12/07/2017) Performed for RADHA positive, Polyarthralgia, Fatigue due to excessive exertion, initial encounter, Hair loss * XR HAND LEFT 3VW OR MORE(Performed 12/07/2017) Performed for RADHA positive, Polyarthralgia, Fatigue due to excessive exertion, initial encounter, Hair loss * XR KNEE LEFT 3VW(Performed 12/07/2017) Performed for RADHA positive, Polyarthralgia, Fatigue due to excessive exertion, initial encounter, Hair loss * XR KNEE RIGHT 3VW(Performed 12/07/2017) Performed for RADHA positive, Polyarthralgia, Fatigue due to excessive exertion, initial encounter, Hair loss Results * [place] EAR MICROSCOPY EXAMINATION (01/10/2019 3:10 PM CDT) Narrative Rafa Jang MD - 01/10/2019 3:10 PM CDT Rafa Jang MD 01/10/2019 3:10 PM Procedure: Microscopic exam of the ear(s) Findings: See main note. Procedure in detail: The binocular operating microscope and and ear speculum were used to exam the ear(s). The patient tolerated the procedure well and there was no bleeding. Rafa Jang MD Rafa Jang MD PROCEDURE/MINOR JOSE GICAL ORDERABLES * (ABNORMAL) URINALYSIS MICROSCOPIC ONLY REFLEXED (12/18/2018 2:59 PM CDT) Only the most recent of3 resultswithin the time period is included. WBC UA 6-10(A) 0 - 5 /hpf [facility] INSURANCE BILL RBC UA 0-2 0 - 2 /hpf [facility] INSURANCE BILL Epithelial Cells (non renal) 0-10 0 - 10 /hpf [facility] INSURANCE BILL Epithelial Cells (renal) NOT NEEDED [facility] INSURANCE BILL Comment:Ancillary determined the test is not needed Casts ua NOT NEEDED [facility] INSURANCE BILL Comment:Ancillary determined the test is not needed Casts UA NOT NEEDED [facility] INSURANCE BILL Comment:Ancillary determined the test is not needed Crystals UA NOT NEEDED [facility] INSURANCE BILL Comment:Ancillary determined the test is not needed Crystals UA NOT NEEDED [facility] INSURANCE BILL Comment:Ancillary determined the test is not needed Mucus UA Present Not Estab. [facility] INSURANCE BILL Bacteria UA Few None seen/Few [facility] INSURANCE BILL Yeast UA NOT NEEDED [facility] INSURANCE BILL Comment:Ancillary determined the test is not needed Trichomonas UA NOT NEEDED [facility] INSURANCE BILL Comment:Ancillary determined the test is not needed Comment Urine NOT NEEDED [facility] INSURANCE BILL Comment:Ancillary determined the test is not needed 12/18/2018 2:59 PM CDT 12/18/2018 Narrative Resulting Agency Comment [facility] Testing performed [facility]: [facility] [address] [phone] Fili Aldana MD LAB - URINALYSIS ORD ERABLES [facility] INSURANCE BILL [address] [place] [address] * (ABNORMAL) URINALYSIS W/MICROSCOPIC REFLEX TO CULTURE (12/18/2018 2:59 PM CDT) Only the most recent of3 resultswithin the time period is included. Specific Chester UA 1.013 1.005 - 1.030 [facility] INSURANCE BILL pH UA 7.0 5.0 - 7.5 [facility] INSURANCE BILL Color UA Yellow Yellow [facility] INSURANCE BILL Appearance Clear Clear [facility] INSURANCE BILL Leukocyte UA 1+(A) Negative [facility] INSURANCE BILL Protein UA Negative Negative/Tra ce [facility] INSURANCE BILL Glucose UA Negative Negative [facility] INSURANCE BILL Ketone UA Negative Negative [facility] INSURANCE BILL Occult Blood Urine Negative Negative [facility] INSURANCE BILL Bilirubin UA Negative Negative [facility] INSURANCE BILL Urobilinogen 0.2 0.2 - 1.0 mg/dL [facility] INSURANCE BILL Nitrite UA Negative Negative [facility] INSURANCE BILL Microscopic Examination Urine See below: [facility] INSURANCE BILL Comment:Microscopic was lizz cated and was performed. Microscopic Examination Urine NOT NEEDED [facility] INSURANCE BILL Comment:Ancillary determined the test is not needed Urinalysis Reflex [facility] INSURANCE BILL Comment:This specimen has re flexed to a Urine Culture. Urine URINE SPECIMEN OBTAINED BY CLEAN CATCH PROCEDURE / Unknown 12/18/2018 2:59 PM CDT 12/18/2018 Narrative Resulting Agency Comment Lab Testing performed at: [facility] [phone] Fili Aldana MD LAB - URINALYSIS ORD ERABLES [facility] [address] [place] [address] * (ABNORMAL) CULTURE URINE COMPREHENSIVE (12/18/2018 2:59 PM CDT) Only the most recent of2 resultswithin the time period is included. Urine Culture Comprehensive Final report(A) [facility] Result 1 Escherichia coli(A) [facility] INSURANCE BILL Comment: 25,000-50,000 colony forming units per mL Cefazolin <=4 ug/mL Cefazolin with an GEORGE <=16 predicts susceptibility to the oral agents cefaclor, cefdinir, cefpodoxime, cefprozil, cefuroxime, cephalexin, and loracarbef when used for therapy of uncomplicated urinary tract infections due to E. coli, Klebsiella pneumoniae, and Proteus mirabilis. Antimicrobial Susceptibility [facility] INSURANCE BILL Comment: S = Susceptible; I = Intermediate; R = Resistant P = Positive; N = Negative MICS are expressed in micrograms per mL Antibiotic RSLT#1 RSLT#2 RSLT#3 RSLT#4 Amoxicillin/Clavulanic Acid S =4 Ampicillin S =4 Cefepime S<=0.12 Ceftriaxone S<=0.25 Cefuroxime S =4 Ciprofloxacin S<=0.25 Ertapenem S<=0.12 Gentamicin S<=1 Imipenem S<=0.25 Levofloxacin S<=0.12 Meropenem S<=0.25 Nitrofurantoin S<=16 Piperacillin/Tazobactam S<=4 Tetracycline S<=1 Tobramycin S<=1 Trimethoprim/Sulfa S<=20 12/18/2018 2:59 PM CDT 12/18/2018 Narrative Resulting Agency Comment Lab Testing performed at: [facility] [place] [id number] Fili Aldana MD LAB - MICROBIOLOGY O RDERABLES Performing Organization Address [facility] Co de Phone Number [facility] INSURANCE BILL [address] [place] [address] * C-REACTIVE PROTEIN (12/18/2018 2:59 PM CDT) Only the most recent of3 resultswithin the time period is included. C-Reactive Protein <1 0 - 10 mg/L [facility] INSURANCE BILL Comment:Please note refere nce interval change Blood BLOOD SPECIMEN / Unknown 12/18/2018 2:59 PM CDT 12/18/2018 Narrative Resulting Agency Comment Lab Testing performed at: [address] [phone] Fili Aldana MD LAB - CHEMISTRY ORDE RABLES Performing Organization Address [facility] de Phone Number [facility] [address] [place] [address] * ERYTHROCYTE SEDIMENTATION RATE (12/18/2018 2:59 PM CDT) Only the most recent of3 resultswithin the time period is included. Erythrocyte Sedimentation Rate Westergren 4 0 - 40 mm/hr [facility] INSURANCE BILL Blood BLOOD SPECIMEN / Unknown 12/18/2018 2:59 PM CDT 12/18/2018 Narrative Resulting Agency Comment Lab Testing performed at: [facility] [address] [phone] Fili Aldana MD LAB - HEMATOLOGY ORD ERABLES Performing Organization Address City/[facility]/ZIP Co de Phone Number [facility] INSURANCE BILL [address] [place] [address] * CBC WITH DIFFERENTIAL (12/18/2018 2:59 PM CDT) Only the most recent of3 resultswithin the time period is included. WBC 4.5 3.4 - 10.8 x10E3/uL [facility] INSURANCE BILL RBC 4.45 3.77 - 5.28 x10E6/uL [facility] INSURANCE BILL Hemoglobin 13.3 11.1 - 15.9 g/dL [facility] INSURANCE BILL Hematocrit 39.4 34.0 - 46.6 % [facility] INSURANCE BILL MCV 89 79 - 97 fL [facility] INSURANCE BILL MCH 29.9 26.6 - 33.0 pg [facility] INSURANCE BILL MCHC 33.8 31.5 - 35.7 g/dL [facility] INSURANCE BILL RDW 13.2 12.3 - 15.4 % [facility] INSURANCE BILL Platelet Count 244 150 - 450 x10E3/uL [facility] INSURANCE BILL Granulocytes % 55 Not Estab. % [facility] INSURANCE BILL Lymphocytes % 37 Not Estab. % [facility] INSURANCE BILL Monocytes % 6 Not Estab. % [facility] INSURANCE BILL Eosinophils % 2 Not Estab. % [facility] INSURANCE BILL Basophils % 0 Not Estab. % [facility] INSURANCE BILL Immature Cells NOT NEEDED [facility] INSURANCE BILL Comment:Ancillary determined the test is not needed Granulocytes Absolute 2.5 1.4 - 7.0 x10E3/uL [facility] INSURANCE BILL Lymphocytes Absolute 1.7 0.7 - 3.1 x10E3/uL [facility] INSURANCE BILL Monocytes Absolute 0.3 0.1 - 0.9 x10E3/uL [facility] INSURANCE BILL Eosinophils Absolute 0.1 0.0 - 0.4 x10E3/uL [facility] INSURANCE BILL Basophils Absolute 0.0 0.0 - 0.2 x10E3/uL [facility] INSURANCE BILL Immature Granulocytes 0 Not Estab. % [facility] INSURANCE BILL Immature Granulocytes Absolute 0.0 0.0 - 0.1 x10E3/uL [facility] INSURANCE BILL nRBC NOT NEEDED [facility] INSURANCE BILL Comment:Ancillary determined the test is not needed Comment Hematology NOT NEEDED [facility] INSURANCE BILL Comment:Ancillary determined the test is not needed Blood BLOOD SPECIMEN / Unknown 12/18/2018 2:59 PM CDT 12/18/2018 Narrative Resulting Agency Comment Lab Testing performed at: [facility] [address] [facility] [phone] Fili Aldana MD LAB - HEMATOLOGY ORD ERABLES [facility] INSURANCE BILL [address] [place] [address] * (ABNORMAL) COMPREHENSIVE METABOLIC PANEL (12/18/2018 2:59 PM CDT) Only the most recent of3 resultswithin the time period is included. Glucose 96 65 - 99 mg/dL [facility] [...] Resulting Agency Comment [facility] performed at: [facility] [address] [facility] [id number] Fili Aldana MD LAB - CHEMISTRY RENÉE CARO [facility] INSURANCE BILL [address] [place] [address] * EYE EXAM (09/20/2018 9:49 AM CDT) Anatomical Region Laterality Modality Other Narrative 09/20/2018 9:49 AM CDT Ordered by an unspecified provider. Scanned Document SCANNING ONLY * EYE EXAM (03/15/2018 1:35 PM CDT) Anatomical Region Laterality Modality Other Narrative 03/15/2018 1:35 PM CDT Ordered by an unspecified provider. Scanned Document SCANNING ONLY * IGM BLOOD (03/08/2018 4:28 PM CDT) IgM Quantitative 81 26 - 217 mg/dL [facility] INSURANCE BILL 03/08/2018 4:28 PM CDT 03/08/2018 Narrative Resulting Agency Comment [facility] [address] [facility] [phone] Girma Desai MD LAB - CHEMISTRY RENÉE CARO Performing Organization Address [facility]/ZIP Co de Phone Number [facility] INSURANCE BILL [address] [place] [address] * IGG BLOOD (03/08/2018 4:28 PM CDT) IgG Quantitative 1,375 700 - 1,600 mg/dL [facility] INSURANCE BILL 03/08/2018 4:28 PM CDT 03/08/2018 Narrative Resulting Agency Comment [facility] [address] [facility] [phone] Girma Desai MD LAB - CHEMISTRY RENÉE ACRO Performing Organization Address City/[facility]/ZIP Co de Phone Number [facility] INSURANCE BILL [address] [place] [address] * IGA BLOOD (03/08/2018 4:28 PM CDT) IgA Quantitative 187 87 - 352 mg/dL [facility] INSURANCE BILL 03/08/2018 4:28 PM CDT 03/08/2018 Narrative Resulting Agency Comment [facility] [address] [facility] [phone] Girma Desai MD LAB - CHEMISTRY RENÉE CARO [facility] INSURANCE BILL [address] [place] [address] * DNA ANTIBODY DS CRITHIDIA IFA (12/07/2017 3:41 PM CDT) dsDNA Antibody Screen Crithidia <1:10 titer [facility] INSURANCE BILL Comment: Reference Range: Negative: < 1:10 titer Positive: => 1:10 titer Double-stranded DNA (dsDNA) antibodies of the IgG class are an accepted criterion ([employer]) for the diagnosis of systemic lupus erythematosus (SLE). DsDNA antibodies detected by Crithidia method is highly specific (over 95%) for SLE. The sensitivity for this method is approximately 70-85% of patients with untreated SLE, and is rarely detectable in other connective tissue diseases. Weakly-positive results caused by low-avidity antibodies to dsDNA are not specific for SLE and can occur in a variety of diseases. The levels of IgG antibodies to dsDNA in serum are known to fluctuate with disease activity in lupus erythematous, often increasing prior to an increase in inflammation and decreasing in response to therapy. *This test has been developed and performance parameters have been validated by [employer] This test has not been approved by the U.S. Food and Drug Administration (FDA); however, US FDA approval is not required for clinical use. It is not intended that clinical diagnosis and patient management decisions be made using these results alone. This test has been validated using serum samples. The recruiting team lead has not determined the efficacy of this test when performed on CSF, plasma, joint or pleural fluid specimens. The performance characteristics of this test were determined by [employer]. Blood BLOOD SPECIMEN / Unknown 12/07/2017 3:41 PM CDT 12/07/2017 Narrative Resulting Agency Comment [employer] [address] [place] [phone] Fili Aldana MD LAB - SEROLOGY ORDER MIYA [facility] INSURANCE BILL [address] [place] [address] * CYCLIC CITRUL PEPTIDE ANTIBODY IGG/IGA ([facility]P) (12/07/2017 3:41 PM CDT) CCP Antibodies IgG/IgA 7 0 - 19 units [facility] INSURANCE BILL Comment: Negative <20 Weak positive 20 - 39 Moderate positive 40 - 59 Strong positive >59 Blood BLOOD SPECIMEN / Unknown 12/07/2017 3:41 PM CDT 12/07/2017 Narrative Resulting Agency Comment [facility] [phone] Fili Aldana MD LAB - SEROLOGY ORDER MIYA Performing Organization Address City/[facility] Co de Phone Number [facility] INSURANCE BILL [address] [place] [address] * LUPUS ANTICOAGULANT PANEL (12/07/2017 3:41 PM CDT) Dilute Prothrombin Time 40.8 0.0 - 55.0 sec [facility] INSURANCE BILL dPT Confirm Ratio 0.89 0.00 - 1.40 Ratio [facility] INSURANCE BILL Thrombin Time 18.8 0.0 - 23.0 sec [facility] INSURANCE BILL PTT-LA 25.3 0.0 - 51.9 sec [facility] INSURANCE BILL dRVVT 29.4 0.0 - 47.0 sec [facility] INSURANCE BILL Interpretation Comment: [facility] INSURANCE BILL Comment:No lupus anticoagula nt was detected. Blood BLOOD SPECIMEN / Unknown 12/07/2017 3:41 PM CDT 12/07/2017 Narrative Resulting Agency Comment [facility] [phone] Fili Aldana MD LAB - HEMATOLOGY ORD ERABLES Performing Organization Address [facility] Co de Phone Number [facility] INSURANCE BILL [address] [place] [address] * CARDIOLIPIN ANTIBODY IGA (12/07/2017 3:41 PM CDT) Cardiolipin Antibody IgA <9 0 - 11 APL U/mL [facility] INSURANCE BILL Comment: Negative: <12 Indeterminate: 12 - 20 Low-Med Positive: >20 - 80 High Positive: >80 Blood BLOOD SPECIMEN / Unknown 12/07/2017 3:41 PM CDT 12/07/2017 Narrative Resulting Agency Comment [facility] [address] [facility] [phone] Fili Aldana MD LAB - SEROLOGY ORDER MIYA Performing Organization Address City/[facility] Co de Phone Number [facility] INSURANCE BILL [address] [place] [address] * CARDIOLIPIN ANTIBODY IGG (12/07/2017 3:41 PM CDT) Cardiolipin Antibody IgG <9 0 - 14 GPL U/mL [facility] INSURANCE BILL Comment: Negative: <15 Indeterminate: 15 - 20 Low-Med Positive: >20 - 80 High Positive: >80 Blood BLOOD SPECIMEN / Unknown 12/07/2017 3:41 PM CDT 12/07/2017 Narrative Resulting Agency Comment [facility] [address] [facility] [phone] Fili Aldana MD LAB - SEROLOGY ORDER MIYA Performing Organization Address [facility] de Phone Number [facility] INSURANCE BILL [address] [place] [address] * SINGH (SM) ANTIBODY ZE (12/07/2017 3:41 PM CDT) Singh (ZE) Antibody <0.2 0.0 - 0.9 AI [facility] INSURANCE BILL Blood BLOOD SPECIMEN / Unknown 12/07/2017 3:41 PM CDT 12/07/2017 Narrative Resulting Agency Comment [facility] [address] [facility] [phone] Fili Aldana MD LAB - CHEMISTRY RENÉE CARO Performing Organization Address [facility] de Phone Number [facility] INSURANCE BILL [address] [place] [address] * ABRASIVE SAWYER ANTIBODY (12/07/2017 3:41 PM CDT) ABRASIVE SAWYER Antibody <0.2 0.0 - 0.9 AI [facility] INSURANCE BILL Blood BLOOD SPECIMEN / Unknown 12/07/2017 3:41 PM CDT 12/07/2017 Narrative Resulting Agency Comment [facility] [address] [facility] [phone] Fili Aldana MD LAB - CHEMISTRY RENÉE CARO [facility] INSURANCE BILL [address] [place] [address] * RHEUMATOID FACTOR BLOOD QUANTITATIVE (12/07/2017 3:41 PM CDT) Rheumatoid Factor <10.0 0.0 - 13.9 IU/mL [facility] INSURANCE BILL Blood BLOOD SPECIMEN / Unknown 12/07/2017 3:41 PM CDT 12/07/2017 Narrative Resulting Agency Comment [facility] [address] [facility] [phone] Fili Aldana MD LAB - CHEMISTRY RENÉE CRAO Performing Organization Address City/[facility] Co de Phone Number [facility] INSURANCE BILL [address] [place] [address] * (ABNORMAL) SS-A/SS-B (SJOGRENS) ANTIBODY PANEL (12/07/2017 3:41 PM CDT) Sjogren's Antibodies (SSA) >8.0(H) 0.0 - 0.9 AI [facility] INSURANCE BILL Sjogren's Antibodies (SSB) 0.5 0.0 - 0.9 AI [facility] INSURANCE BILL Blood BLOOD SPECIMEN / Unknown 12/07/2017 3:41 PM CDT 12/07/2017 Narrative Resulting Agency Comment [facility] [address] [facility] [id number] Fili Aldana MD LAB - CHEMISTRY RENÉE CARO [facility] INSURANCE BILL [address] [place] [address] * THYROID PEROXIDASE ANTIBODY (12/07/2017 3:41 PM CDT) Thyroid Peroxidase TPO Antibody 14 0 - 34 IU/mL [facility] INSURANCE BILL Blood BLOOD SPECIMEN / Unknown 12/07/2017 3:41 PM CDT 12/07/2017 Narrative Resulting Agency Comment [facility] [address] [facility] [phone] Fili Aldana MD LAB - CHEMISTRY RENÉE CARO Performing Organization Address City/State/[facility] Co de Phone Number [facility] INSURANCE BILL [address] [place] [address] * THYROGLOBULIN ANTIBODY (12/07/2017 3:41 PM CDT) Thyroglobulin Antibody <1.0 0.0 - 0.9 IU/mL [facility] INSURANCE BILL Comment:Thyroglobulin Antibo dy measured by [facility] [place] Methodology Blood BLOOD SPECIMEN / Unknown 12/07/2017 3:41 PM CDT 12/07/2017 Narrative Resulting Agency Comment [facility] [address] [facility] [id number] Fili Aldana MD LAB - CHEMISTRY RENÉE CARO Performing Organization Address [facility] Co de Phone Number [facility] INSURANCE BILL [address] [place] [address] * HISTONE ANTIBODY (12/07/2017 3:41 PM CDT) Anti-Histone Antibody 0.5 0.0 - 0.9 Units [facility] INSURANCE BILL Comment: Negative <1.0 Weak Positive 1.0 - 1.5 Moderate Positive 1.6 - 2.5 Strong Positive >2.5 Blood BLOOD SPECIMEN / Unknown 12/07/2017 3:41 PM CDT 12/07/2017 Narrative Resulting Agency Comment [facility] [address] [id number] Fili Aldana MD LAB - CHEMISTRY RENÉE CARO Performing Organization Address [facility] Co de Phone Number [facility] INSURANCE BILL [address] [place] [address] * COMPLEMENT TOTAL (12/07/2017 3:41 PM CDT) Complement Total CH50 >60 >41 U/mL [facility] INSURANCE BILL Comment:Please note refere nce interval change Blood BLOOD SPECIMEN / Unknown 12/07/2017 3:41 PM CDT 12/07/2017 Narrative Resulting Agency Comment [facility] [address] [facility] [phone] Fili Aldana MD LAB - CHEMISTRY RENÉE CARO [facility] INSURANCE BILL [address] [place] [address] * COMPLEMENT C4 (12/07/2017 3:41 PM CDT) Complement C4 17 14 - 44 mg/dL [facility] INSURANCE BILL Blood BLOOD SPECIMEN / Unknown 12/07/2017 3:41 PM CDT 12/07/2017 Narrative Resulting Agency Comment [facility] [address] [facility] [phone] Fili Aldana MD LAB - SEROLOGY ORDER MIYA [facility] INSURANCE BILL [address] [place] [address] * CHROMATIN ANTIBODY (12/07/2017 3:40 PM CDT) Antichromatin Antibodies <0.2 0.0 - 0.9 AI [facility] INSURANCE BILL Blood BLOOD SPECIMEN / Unknown 12/07/2017 3:40 PM CDT 12/07/2017 Narrative Resulting Agency Comment [facility] [address] [facility] [id number] Fili Aldana MD LAB - SEROLOGY ORDER MIYA Performing Organization Address City/State/[facility] Co de Phone Number [facility] INSURANCE BILL [address] [place] [address] * (ABNORMAL) KYLEE STAINING PATTERNS REFLEXED (12/07/2017 3:40 PM CDT) Homogeneous Pattern NOT NEEDED [facility] INSURANCE BILL Comment:Ancillary determined the test is not needed Nucleolar Pattern NOT NEEDED [facility] INSURANCE BILL Comment:Ancillary determined the test is not needed Speckled Pattern 1:640(H) [facility] INSURANCE BILL Centromere Pattern NOT NEEDED [facility] INSURANCE BILL Comment:Ancillary determined the test is not needed Spindle Apparatus Pattern NOT NEEDED [facility] INSURANCE BILL Comment:Ancillary determined the test is not needed Nuclear Membrane Pattern NOT NEEDED [facility] INSURANCE BILL Comment:Ancillary determined the test is not needed Midbody Pattern NOT NEEDED [facility] INSURANCE BILL Comment:Ancillary determined the test is not needed Nuclear Dot Pattern NOT NEEDED [facility] INSURANCE BILL Comment:Ancillary determined the test is not needed PCNA Pattern NOT NEEDED [facility] INSURANCE BILL Comment:Ancillary determined the test is not needed Centriole Pattern NOT NEEDED [facility] INSURANCE BILL Comment:Ancillary determined the test is not needed Note [facility] INSURANCE BILL Comment: A positive RADHA result may occur in healthy individuals (low titer) or be associated with a variety of diseases. See interpretation chart which is not all inclusive: . Pattern Antigen Detected Suggested Disease Association Homogeneous DNA(ds,ss), SLE - High titers Nucleosomes, Histones Drug-induced SLE Speckled Sm, ABRASIVE SAWYER, SCL-70, SLE,MCTD,PSS (diffuse form), SS-A/SS-B Sjogrens Nucleolar SCL-70, PM-1/SCL High titers Scleroderma, PM/DM Centromere Centromere PSS (limited form) w/Crest syndrome variable Nuclear Dot [id number] Primary Biliary Cirrhosis Nuclear GP210, Primary Biliary Cirrhosis Membrane karey A,B,C 12/07/2017 3:40 PM CDT 12/07/2017 Narrative Resulting Agency Comment [facility] [address] [place] [address] [phone] Fili Aldana MD LAB - PATHOLOGY/CYTO LOGY ORDERABLES Performing Organization Address City/[facility]/ZIP Co de Phone Number [facility] INSURANCE BILL [address] [place] [address] * CARDIOLIPIN ANTIBODY IGM (12/07/2017 3:40 PM CDT) Cardiolipin Antibody IgM 12 0 - 12 MPL U/mL [facility] INSURANCE BILL Comment: Negative: <13 Indeterminate: 13 - 20 Low-Med Positive: >20 - 80 High Positive: >80 Blood BLOOD SPECIMEN / Unknown 12/07/2017 3:40 PM CDT 12/07/2017 Narrative Resulting Agency Comment [place] [id number] [facility] [id number] Fili Aldana MD LAB - SEROLOGY ORDER MIYA Performing Organization Address City/[facility] Co de Phone Number [facility] INSURANCE BILL [address] [place] [address] * BETA-2 GLYCOPROTEIN 1 ANTIBODY IGG/IGM/IGA PANEL (12/07/2017 3:40 PM CDT) Beta-2 Glycoprotein I Antibody IgG <9 0 - 20 GPI IgG units [facility] INSURANCE BILL Comment: The reference interval reflects a 3SD or 99th percentile interval, which is thought to represent a potentially clinically significant result in accordance with the International Consensus Statement on the classification criteria for definitive antiphospholipid syndrome (APS). J Thromb Haem 2006;4:295-306. Beta-2 Glycoprotein I Antibody IgA <9 0 - 25 GPI IgA units [facility] INSURANCE BILL Comment: The reference interval reflects a 3SD or 99th percentile interval, which is thought to represent a potentially clinically significant result in accordance with the International Consensus Statement on the classification criteria for definitive antiphospholipid syndrome (APS). J Thromb Haem 2006;4:295-306. Beta-2 Glycoprotein I Antibody IgM <9 0 - 32 GPI IgM units [facility] INSURANCE BILL Comment: The reference interval reflects a 3SD or 99th percentile interval, which is thought to represent a potentially clinically significant result in accordance with the International Consensus Statement on the classification criteria for definitive antiphospholipid syndrome (APS). J Thromb Haem 2006;4:295-306. Blood BLOOD SPECIMEN / Unknown 12/07/2017 3:40 PM CDT 12/07/2017 Narrative Resulting Agency Comment [facility] [phone] Fili Aldana MD LAB - SEROLOGY ORDER MIYA Performing Organization Address City/[facility]/ZIP Co de Phone Number [facility] INSURANCE BILL [address] [place] [address] * (ABNORMAL) RADHA BLOOD SCREEN W/REFLEX TITER (12/07/2017 3:40 PM CDT) RADHA Positive(A ) [facility] INSURANCE BILL Comment: Negative <1:80 Borderline 1:80 Positive >1:80 Blood BLOOD SPECIMEN / Unknown 12/07/2017 3:40 PM CDT 12/07/2017 Narrative Resulting Agency Comment [facility] [address] [facility] [phone] Fili Aldana MD LAB - CHEMISTRY ORDE RABLES Performing Organization Address City/[facility]/ZIP Co de Phone Number [facility] INSURANCE BILL [address] [place] [address] * COMPLEMENT C3 (12/07/2017 3:40 PM CDT) Complement C3 118 82 - 167 mg/dL [facility] INSURANCE BILL Blood BLOOD SPECIMEN / Unknown 12/07/2017 3:40 PM CDT 12/07/2017 Narrative Resulting Agency Comment [facility] [address] [facility] [phone] Fili Aldana MD LAB - CHEMISTRY RENÉE CARO [facility] Organization Address City/State/ZIP Co de Phone Number [facility] INSURANCE BILL [address] [place] [address] * XR KNEE RIGHT 3VW (12/07/2017 12:29 PM CDT) Anatomical Region Laterality Modality Lower Extremity Radiographic [place] ging 12/07/2017 12:3 7 PM CDT Impressions 12/08/2017 3:42 PM CDT IMPRESSION: Right knee: Normal Left knee: Normal Right foot: No evidence of arthritis. Small plantar calcaneal spur. Moderate size talar spur. Left foot: No evidence of arthritis. Small plantar calcaneal spur. Right hand: Normal Left hand: Normal Dictated by Julianna Oliveira MD (residential fee appraiser). I, Dr. AYAN HAMILTON have personally reviewed and interpreted this examination/study. This report was electronically signed by AYAN HAMILTON on 12/08/2017 3:42 PM . Narrative 12/08/2017 3:42 PM CDT EXAMINATION: XR KNEE RIGHT 3VW, weightbearing, XR FOOT RIGHT 3VW OR MORE, XR FOOT LEFT 3VW OR MORE, XR HAND RIGHT 3VW OR MORE, XR HAND LEFT 3VW OR MORE, XR KNEE LEFT 3VW, weightbearing HISTORY: R76.8: RADHA positive M25.50: Polyarthralgia COMPARISON: No prior study is available for comparison. FINDINGS: Right knee: The osseous structures are intact and well aligned in this weightbearing examination without acute fracture or dislocation. The knee joint space is preserved. No joint effusion is seen. Bone density and texture are normal. Left knee: The osseous structures are intact and well aligned in this weightbearing examination without acute fracture or dislocation. The knee joint space is preserved. No joint effusion is seen. Bone density and texture are normal. Right foot: The osseous structures are intact and well aligned without acute fracture or dislocation. The ankle mortise is intact. Bone density and texture are normal. No soft tissue swelling is present. There is a small plantar calcaneal spur. There is a moderate size spur formation arising from posterior aspect of the talar dome. Left foot: The osseous structures are intact and well aligned without acute fracture or dislocation. The ankle mortise is intact. Bone density and texture are normal. No soft tissue swelling is present. There is a small plantar calcaneal spur. Right hand: The osseous structures are intact and well aligned without acute fracture or dislocation. The joint spaces are preserved. There is no evidence of erosion. Bone density and texture are normal. No soft tissue swelling is present. Left hand: The osseous structures are intact and well aligned without acute fracture or dislocation. The joint spaces are preserved. There is no evidence of erosion. Bone density and texture are normal. No soft tissue swelling is present. Procedure Note Ayan Hamilton Lew, DO - 12/08/2017 EXAMINATION: XR KNEE RIGHT 3VW, weightbearing, XR FOOT RIGHT 3VW ORMORE, XR FOOT LEFT 3VW OR MORE, XR HAND RIGHT 3VW OR MORE, XR HAND LEFT 3VW OR MORE, XR KNEE LEFT 3VW, weightbearing HISTORY: R76.8: RADHA positive M25.50: Polyarthralgia COMPARISON: No prior study is available for comparison. FINDINGS: Right knee: The osseous structures are intact and well aligned in this weightbearing examination without acute fracture or dislocation. The knee joint spaceis preserved. No joint effusion is seen. Bone density and texture arenormal. Left knee: The osseous structures are intact and well aligned in this weightbearing examination without acute fracture or dislocation. The knee joint spaceis preserved. No joint effusion is seen. Bone density and texture arenormal. Right foot: The osseous structures are intact and well aligned without acutefracture or dislocation. The ankle mortise is intact. Bone density and textureare normal. No soft tissue swelling is present. There is a small plantar calcaneal spur. There is a moderate size spur formation arising from posterior aspect of the talar dome. Left foot: The osseous structures are intact and well aligned without acutefracture or dislocation. The ankle mortise is intact. Bone density and textureare normal. No soft tissue swelling is present. There is a small plantar calcaneal spur. Right hand: The osseous structures are intact and well aligned without acutefracture or dislocation. The joint spaces are preserved. There is no evidence of erosion. Bone density and texture are normal. No soft tissue swelling is present. Left hand: The osseous structures are intact and well aligned without acutefracture or dislocation. The joint spaces are preserved. There is no evidence of erosion. Bone density and texture are normal. No soft tissue swelling is present. IMPRESSION: Right knee: Normal Left knee: Normal Right foot: No evidence of arthritis. Small plantar calcaneal spur. Moderate size talar spur. Left foot: No evidence of arthritis. Small plantar calcaneal spur. Right hand: Normal Left hand: Normal Dictated by Julianna Oliveira MD (residential fee appraiser). Dr. AYAN Chan have personally reviewed and interpreted this examination/study. This report was electronically signed by AYAN HAMILTON on 12/08/2017 3:42 PM . Fili Aldana MD DIAGNOSTIC IMAGING O RDERABLES * XR FOOT RIGHT 3VW OR MORE (12/07/2017 12:29 PM CDT) Anatomical Region Laterality Modality Ankle / Foot Radiographic [place] ging 12/07/2017 12:3 7 PM CDT Impressions 12/08/2017 3:42 PM CDT IMPRESSION: Right knee: Normal Left knee: Normal Right foot: No evidence of arthritis. Small plantar calcaneal spur. Moderate size talar spur. Left foot: No evidence of arthritis. Small plantar calcaneal spur. Right hand: Normal Left hand: Normal Dictated by Julianna Oliveira MD (residential fee appraiser). Dr. AAYN Chan have personally reviewed and interpreted this examination/study. This report was electronically signed by AYAN HAMILTON on 12/08/2017 3:42 PM . Narrative 12/08/2017 3:42 PM CDT EXAMINATION: XR KNEE RIGHT 3VW, weightbearing, XR FOOT RIGHT 3VW OR MORE, XR FOOT LEFT 3VW OR MORE, XR HAND RIGHT 3VW OR MORE, XR HAND LEFT 3VW OR MORE, XR KNEE LEFT 3VW, weightbearing HISTORY: R76.8: RADHA positive M25.50: Polyarthralgia COMPARISON: No prior study is available for comparison. FINDINGS: Right knee: The osseous structures are intact and well aligned in this weightbearing examination without acute fracture or dislocation. The knee joint space is preserved. No joint effusion is seen. Bone density and texture are normal. Left knee: The osseous structures are intact and well aligned in this weightbearing examination without acute fracture or dislocation. The knee joint space is preserved. No joint effusion is seen. Bone density and texture are normal. Right foot: The osseous structures are intact and well aligned without acute fracture or dislocation. The ankle mortise is intact. Bone density and texture are normal. No soft tissue swelling is present. There is a small plantar calcaneal spur. There is a moderate size spur formation arising from posterior aspect of the talar dome. Left foot: The osseous structures are intact and well aligned without acute fracture or dislocation. The ankle mortise is intact. Bone density and texture are normal. No soft tissue swelling is present. There is a small plantar calcaneal spur. Right hand: The osseous structures are intact and well aligned without acute fracture or dislocation. The joint spaces are preserved. There is no evidence of erosion. Bone density and texture are normal. No soft tissue swelling is present. Left hand: The osseous structures are intact and well aligned without acute fracture or dislocation. The joint spaces are preserved. There is no evidence of erosion. Bone density and texture are normal. No soft tissue swelling is present. Procedure Note Ayan Hamilton, DO - 12/08/2017 EXAMINATION: XR KNEE RIGHT 3VW, weightbearing, XR FOOT RIGHT 3VW ORMORE, XR FOOT LEFT 3VW OR MORE, XR HAND RIGHT 3VW OR MORE, XR HAND LEFT 3VW OR MORE, XR KNEE LEFT 3VW, weightbearing HISTORY: R76.8: RADHA positive M25.50: Polyarthralgia COMPARISON: No prior study is available for comparison. FINDINGS: Right knee: The osseous structures are intact and well aligned in this weightbearing examination without acute fracture or dislocation. The knee joint spaceis preserved. No joint effusion is seen. Bone density and texture arenormal. Left knee: The osseous structures are intact and well aligned in this weightbearing examination without acute fracture or dislocation. The knee joint spaceis preserved. No joint effusion is seen. Bone density and texture arenormal. Right foot: The osseous structures are intact and well aligned without acutefracture or dislocation. The ankle mortise is intact. Bone density and textureare normal. No soft tissue swelling is present. There is a small plantar calcaneal spur. There is a moderate size spur formation arising from posterior aspect of the talar dome. Left foot: The osseous structures are intact and well aligned without acutefracture or dislocation. The ankle mortise is intact. Bone density and textureare normal. No soft tissue swelling is present. There is a small plantar calcaneal spur. Right hand: The osseous structures are intact and well aligned without acutefracture or dislocation. The joint spaces are preserved. There is no evidence of erosion. Bone density and texture are normal. No soft tissue swelling is present. Left hand: The osseous structures are intact and well aligned without acutefracture or dislocation. The joint spaces are preserved. There is no evidence of erosion. Bone density and texture are normal. No soft tissue swelling is present. IMPRESSION: Right knee: Normal Left knee: Normal Right foot: No evidence of arthritis. Small plantar calcaneal spur. Moderate size talar spur. Left foot: No evidence of arthritis. Small plantar calcaneal spur. Right hand: Normal Left hand: Normal Dictated by Julianna Oliveira MD (residential fee appraiser). Dr. AYAN Chan have personally reviewed and interpreted this examination/study. This report was electronically signed by AYAN HAMILTON on 12/08/2017 3:42 PM . Fili Aldana MD DIAGNOSTIC IMAGING O RDERABLES * XR FOOT LEFT 3VW OR MORE (12/07/2017 12:29 PM CDT) Anatomical Region Laterality Modality Ankle / Foot Radiographic [place] ging 12/07/2017 12:3 7 PM CDT Impressions 12/08/2017 3:42 PM CDT IMPRESSION: Right knee: Normal Left knee: Normal Right foot: No evidence of arthritis. Small plantar calcaneal spur. Moderate size talar spur. Left foot: No evidence of arthritis. Small plantar calcaneal spur. Right hand: Normal Left hand: Normal Dictated by Julianna Oliveira MD (residential fee appraiser). Dr. AYAN Chan have personally reviewed and interpreted this examination/study. This report was electronically signed by AYAN HAMILTON on 12/08/2017 3:42 PM . Narrative 12/08/2017 3:42 PM CDT EXAMINATION: XR KNEE RIGHT 3VW, weightbearing, XR FOOT RIGHT 3VW OR MORE, XR FOOT LEFT 3VW OR MORE, XR HAND RIGHT 3VW OR MORE, XR HAND LEFT 3VW OR MORE, XR KNEE LEFT 3VW, weightbearing HISTORY: R76.8: RADHA positive M25.50: Polyarthralgia COMPARISON: No prior study is available for comparison. FINDINGS: Right knee: The osseous structures are intact and well aligned in this weightbearing examination without acute fracture or dislocation. The knee joint space is preserved. No joint effusion is seen. Bone density and texture are normal. Left knee: The osseous structures are intact and well aligned in this weightbearing examination without acute fracture or dislocation. The knee joint space is preserved. No joint effusion is seen. Bone density and texture are normal. Right foot: The osseous structures are intact and well aligned without acute fracture or dislocation. The ankle mortise is intact. Bone density and texture are normal. No soft tissue swelling is present. There is a small plantar calcaneal spur. There is a moderate size spur formation arising from posterior aspect of the talar dome. Left foot: The osseous structures are intact and well aligned without acute fracture or dislocation. The ankle mortise is intact. Bone density and texture are normal. No soft tissue swelling is present. There is a small plantar calcaneal spur. Right hand: The osseous structures are intact and well aligned without acute fracture or dislocation. The joint spaces are preserved. There is no evidence of erosion. Bone density and texture are normal. No soft tissue swelling is present. Left hand: The osseous structures are intact and well aligned without acute fracture or dislocation. The joint spaces are preserved. There is no evidence of erosion. Bone density and texture are normal. No soft tissue swelling is present. Procedure Note Ayan Hamilton DO - 12/08/2017 EXAMINATION: XR KNEE RIGHT 3VW, weightbearing, XR FOOT RIGHT 3VW ORMORE, XR FOOT LEFT 3VW OR MORE, XR HAND RIGHT 3VW OR MORE, XR HAND LEFT 3VW OR MORE, XR KNEE LEFT 3VW, weightbearing HISTORY: R76.8: RADHA positive M25.50: Polyarthralgia COMPARISON: No prior study is available for comparison. FINDINGS: Right knee: The osseous structures are intact and well aligned in this weightbearing examination without acute fracture or dislocation. The knee joint spaceis preserved. No joint effusion is seen. Bone density and texture arenormal. Left knee: The osseous structures are intact and well aligned in this weightbearing examination without acute fracture or dislocation. The knee joint spaceis preserved. No joint effusion is seen. Bone density and texture arenormal. Right foot: The osseous structures are intact and well aligned without acutefracture or dislocation. The ankle mortise is intact. Bone density and textureare normal. No soft tissue swelling is present. There is a small plantar calcaneal spur. There is a moderate size spur formation arising from posterior aspect of the talar dome. Left foot: The osseous structures are intact and well aligned without acutefracture or dislocation. The ankle mortise is intact. Bone density and textureare normal. No soft tissue swelling is present. There is a small plantar calcaneal spur. Right hand: The osseous structures are intact and well aligned without acutefracture or dislocation. The joint spaces are preserved. There is no evidence of erosion. Bone density and texture are normal. No soft tissue swelling is present. Left hand: The osseous structures are intact and well aligned without acutefracture or dislocation. The joint spaces are preserved. There is no evidence of erosion. Bone density and texture are normal. No soft tissue swelling is present. IMPRESSION: Right knee: Normal Left knee: Normal Right foot: No evidence of arthritis. Small plantar calcaneal spur. Moderate size talar spur. Left foot: No evidence of arthritis. Small plantar calcaneal spur. Right hand: Normal Left hand: Normal Dictated by Julianna Oliveira MD (residential fee appraiser). I, Dr. AYAN HAMILTON have personally reviewed and interpreted this examination/study. This report was electronically signed by AYAN HAMILTON on 12/08/2017 3:42 PM . Fili Aldana MD DIAGNOSTIC IMAGING O RDERABLES * XR KNEE LEFT 3VW (12/07/2017 12:29 PM CDT) Anatomical Region Laterality Modality Lower Extremity Radiographic [place] ging 12/07/2017 12:3 7 PM CDT Impressions 12/08/2017 3:42 PM CDT IMPRESSION: Right knee: Normal Left knee: Normal Right foot: No evidence of arthritis. Small plantar calcaneal spur. Moderate size talar spur. Left foot: No evidence of arthritis. Small plantar calcaneal spur. Right hand: Normal Left hand: Normal Dictated by Julianna Oliveira MD (residential fee appraiser). I, Dr. AYAN HAMILTON have personally reviewed and interpreted this examination/study. This report was electronically signed by AYAN HAMILTON on 12/08/2017 3:42 PM . Narrative 12/08/2017 3:42 PM CDT EXAMINATION: XR KNEE RIGHT 3VW, weightbearing, XR FOOT RIGHT 3VW OR MORE, XR FOOT LEFT 3VW OR MORE, XR HAND RIGHT 3VW OR MORE, XR HAND LEFT 3VW OR MORE, XR KNEE LEFT 3VW, weightbearing HISTORY: R76.8: RADHA positive M25.50: Polyarthralgia COMPARISON: No prior study is available for comparison. FINDINGS: Right knee: The osseous structures are intact and well aligned in this weightbearing examination without acute fracture or dislocation. The knee joint space is preserved. No joint effusion is seen. Bone density and texture are normal. Left knee: The osseous structures are intact and well aligned in this weightbearing examination without acute fracture or dislocation. The knee joint space is preserved. No joint effusion is seen. Bone density and texture are normal. Right foot: The osseous structures are intact and well aligned without acute fracture or dislocation. The ankle mortise is intact. Bone density and texture are normal. No soft tissue swelling is present. There is a small plantar calcaneal spur. There is a moderate size spur formation arising from posterior aspect of the talar dome. Left foot: The osseous structures are intact and well aligned without acute fracture or dislocation. The ankle mortise is intact. Bone density and texture are normal. No soft tissue swelling is present. There is a small plantar calcaneal spur. Right hand: The osseous structures are intact and well aligned without acute fracture or dislocation. The joint spaces are preserved. There is no evidence of erosion. Bone density and texture are normal. No soft tissue swelling is present. Left hand: The osseous structures are intact and well aligned without acute fracture or dislocation. The joint spaces are preserved. There is no evidence of erosion. Bone density and texture are normal. No soft tissue swelling is present. Procedure Note Ayan Hamilton DO - 12/08/2017 EXAMINATION: XR KNEE RIGHT 3VW, weightbearing, XR FOOT RIGHT 3VW ORMORE, XR FOOT LEFT 3VW OR MORE, XR HAND RIGHT 3VW OR MORE, XR HAND LEFT 3VW OR MORE, XR KNEE LEFT 3VW, weightbearing HISTORY: R76.8: RADHA positive M25.50: Polyarthralgia COMPARISON: No prior study is available for comparison. FINDINGS: Right knee: The osseous structures are intact and well aligned in this weightbearing examination without acute fracture or dislocation. The knee joint spaceis preserved. No joint effusion is seen. Bone density and texture arenormal. Left knee: The osseous structures are intact and well aligned in this weightbearing examination without acute fracture or dislocation. The knee joint spaceis preserved. No joint effusion is seen. Bone density and texture arenormal. Right foot: The osseous structures are intact and well aligned without acutefracture or dislocation. The ankle mortise is intact. Bone density and textureare normal. No soft tissue swelling is present. There is a small plantar calcaneal spur. There is a moderate size spur formation arising from posterior aspect of the talar dome. Left foot: The osseous structures are intact and well aligned without acutefracture or dislocation. The ankle mortise is intact. Bone density and textureare normal. No soft tissue swelling is present. There is a small plantar calcaneal spur. Right hand: The osseous structures are intact and well aligned without acutefracture or dislocation. The joint spaces are preserved. There is no evidence of erosion. Bone density and texture are normal. No soft tissue swelling is present. Left hand: The osseous structures are intact and well aligned without acutefracture or dislocation. The joint spaces are preserved. There is no evidence of erosion. Bone density and texture are normal. No soft tissue swelling is present. IMPRESSION: Right knee: Normal Left knee: Normal Right foot: No evidence of arthritis. Small plantar calcaneal spur. Moderate size talar spur. Left foot: No evidence of arthritis. Small plantar calcaneal spur. Right hand: Normal Left hand: Normal Dictated by Julianna Oliveira MD (residential fee appraiser). IDr. AYAN have personally reviewed and interpreted this examination/study. This report was electronically signed by AYAN HAMILTON on 12/08/2017 3:42 PM . Fili Aldana MD DIAGNOSTIC IMAGING O RDERABLES * XR HAND RIGHT 3VW OR MORE (12/07/2017 12:29 PM CDT) Anatomical Region Laterality Modality Wrist / Hand Radiographic [place] ging 12/07/2017 12:3 7 PM CDT Impressions 12/08/2017 3:42 PM CDT IMPRESSION: Right knee: Normal Left knee: Normal Right foot: No evidence of arthritis. Small plantar calcaneal spur. Moderate size talar spur. Left foot: No evidence of arthritis. Small plantar calcaneal spur. Right hand: Normal Left hand: Normal Dictated by Julianna Oliveira MD (residential fee appraiser). I, Dr. AYAN HAMILTON have personally reviewed and interpreted this examination/study. This report was electronically signed by AYAN HAMILTON on 12/08/2017 3:42 PM . Narrative 12/08/2017 3:42 PM CDT EXAMINATION: XR KNEE RIGHT 3VW, weightbearing, XR FOOT RIGHT 3VW OR MORE, XR FOOT LEFT 3VW OR MORE, XR HAND RIGHT 3VW OR MORE, XR HAND LEFT 3VW OR MORE, XR KNEE LEFT 3VW, weightbearing HISTORY: R76.8: RADHA positive M25.50: Polyarthralgia COMPARISON: No prior study is available for comparison. FINDINGS: Right knee: The osseous structures are intact and well aligned in this weightbearing examination without acute fracture or dislocation. The knee joint space is preserved. No joint effusion is seen. Bone density and texture are normal. Left knee: The osseous structures are intact and well aligned in this weightbearing examination without acute fracture or dislocation. The knee joint space is preserved. No joint effusion is seen. Bone density and texture are normal. Right foot: The osseous structures are intact and well aligned without acute fracture or dislocation. The ankle mortise is intact. Bone density and texture are normal. No soft tissue swelling is present. There is a small plantar calcaneal spur. There is a moderate size spur formation arising from posterior aspect of the talar dome. Left foot: The osseous structures are intact and well aligned without acute fracture or dislocation. The ankle mortise is intact. Bone density and texture are normal. No soft tissue swelling is present. There is a small plantar calcaneal spur. Right hand: The osseous structures are intact and well aligned without acute fracture or dislocation. The joint spaces are preserved. There is no evidence of erosion. Bone density and texture are normal. No soft tissue swelling is present. Left hand: The osseous structures are intact and well aligned without acute fracture or dislocation. The joint spaces are preserved. There is no evidence of erosion. Bone density and texture are normal. No soft tissue swelling is present. Procedure Note LorrieAyan pearson Lew, DO - 12/08/2017 EXAMINATION: XR KNEE RIGHT 3VW, weightbearing, XR FOOT RIGHT 3VW ORMORE, XR FOOT LEFT 3VW OR MORE, XR HAND RIGHT 3VW OR MORE, XR HAND LEFT 3VW OR MORE, XR KNEE LEFT 3VW, weightbearing HISTORY: R76.8: RADHA positive M25.50: Polyarthralgia COMPARISON: No prior study is available for comparison. FINDINGS: Right knee: The osseous structures are intact and well aligned in this weightbearing examination without acute fracture or dislocation. The knee joint spaceis preserved. No joint effusion is seen. Bone density and texture arenormal. Left knee: The osseous structures are intact and well aligned in this weightbearing examination without acute fracture or dislocation. The knee joint spaceis preserved. No joint effusion is seen. Bone density and texture arenormal. Right foot: The osseous structures are intact and well aligned without acutefracture or dislocation. The ankle mortise is intact. Bone density and textureare normal. No soft tissue swelling is present. There is a small plantar calcaneal spur. There is a moderate size spur formation arising from posterior aspect of the talar dome. Left foot: The osseous structures are intact and well aligned without acutefracture or dislocation. The ankle mortise is intact. Bone density and textureare normal. No soft tissue swelling is present. There is a small plantar calcaneal spur. Right hand: The osseous structures are intact and well aligned without acutefracture or dislocation. The joint spaces are preserved. There is no evidence of erosion. Bone density and texture are normal. No soft tissue swelling is present. Left hand: The osseous structures are intact and well aligned without acutefracture or dislocation. The joint spaces are preserved. There is no evidence of erosion. Bone density and texture are normal. No soft tissue swelling is present. IMPRESSION: Right knee: Normal Left knee: Normal Right foot: No evidence of arthritis. Small plantar calcaneal spur. Moderate size talar spur. Left foot: No evidence of arthritis. Small plantar calcaneal spur. Right hand: Normal Left hand: Normal Dictated by Julianna Oliveira MD (residential fee appraiser). Dr. AYAN Chan have personally reviewed and interpreted this examination/study. This report was electronically signed by AYAN HAMILTON on 12/08/2017 3:42 PM . Fili Aldana MD DIAGNOSTIC IMAGING O RDERABLES * XR HAND LEFT 3VW OR MORE (12/07/2017 12:29 PM CDT) Anatomical Region Laterality Modality Wrist / Hand Radiographic [place] ging 12/07/2017 12:3 7 PM CDT Impressions 12/08/2017 3:42 PM CDT IMPRESSION: Right knee: Normal Left knee: Normal Right foot: No evidence of arthritis. Small plantar calcaneal spur. Moderate size talar spur. Left foot: No evidence of arthritis. Small plantar calcaneal spur. Right hand: Normal Left hand: Normal Dictated by Julianna Oliveira MD (residential fee appraiser). Dr. AYAN Chan have personally reviewed and interpreted this examination/study. This report was electronically signed by AYAN HAMILTON on 12/08/2017 3:42 PM . Narrative 12/08/2017 3:42 PM CDT EXAMINATION: XR KNEE RIGHT 3VW, weightbearing, XR FOOT RIGHT 3VW OR MORE, XR FOOT LEFT 3VW OR MORE, XR HAND RIGHT 3VW OR MORE, XR HAND LEFT 3VW OR MORE, XR KNEE LEFT 3VW, weightbearing HISTORY: R76.8: RADHA positive M25.50: Polyarthralgia COMPARISON: No prior study is available for comparison. FINDINGS: Right knee: The osseous structures are intact and well aligned in this weightbearing examination without acute fracture or dislocation. The knee joint space is preserved. No joint effusion is seen. Bone density and texture are normal. Left knee: The osseous structures are intact and well aligned in this weightbearing examination without acute fracture or dislocation. The knee joint space is preserved. No joint effusion is seen. Bone density and texture are normal. Right foot: The osseous structures are intact and well aligned without acute fracture or dislocation. The ankle mortise is intact. Bone density and texture are normal. No soft tissue swelling is present. There is a small plantar calcaneal spur. There is a moderate size spur formation arising from posterior aspect of the talar dome. Left foot: The osseous structures are intact and well aligned without acute fracture or dislocation. The ankle mortise is intact. Bone density and texture are normal. No soft tissue swelling is present. There is a small plantar calcaneal spur. Right hand: The osseous structures are intact and well aligned without acute fracture or dislocation. The joint spaces are preserved. There is no evidence of erosion. Bone density and texture are normal. No soft tissue swelling is present. Left hand: The osseous structures are intact and well aligned without acute fracture or dislocation. The joint spaces are preserved. There is no evidence of erosion. Bone density and texture are normal. No soft tissue swelling is present. Procedure Note Ayan Hamilton DO - 12/08/2017 EXAMINATION: XR KNEE RIGHT 3VW, weightbearing, XR FOOT RIGHT 3VW ORMORE, XR FOOT LEFT 3VW OR MORE, XR HAND RIGHT 3VW OR MORE, XR HAND LEFT 3VW OR MORE, XR KNEE LEFT 3VW, weightbearing HISTORY: R76.8: RADHA positive M25.50: Polyarthralgia COMPARISON: No prior study is available for comparison. FINDINGS: Right knee: The osseous structures are intact and well aligned in this weightbearing examination without acute fracture or dislocation. The knee joint spaceis preserved. No joint effusion is seen. Bone density and texture arenormal. Left knee: The osseous structures are intact and well aligned in this weightbearing examination without acute fracture or dislocation. The knee joint spaceis preserved. No joint effusion is seen. Bone density and texture arenormal. Right foot: The osseous structures are intact and well aligned without acutefracture or dislocation. The ankle mortise is intact. Bone density and textureare normal. No soft tissue swelling is present. There is a small plantar calcaneal spur. There is a moderate size spur formation arising from posterior aspect of the talar dome. Left foot: The osseous structures are intact and well aligned without acutefracture or dislocation. The ankle mortise is intact. Bone density and textureare normal. No soft tissue swelling is present. There is a small plantar calcaneal spur. Right hand: The osseous structures are intact and well aligned without acutefracture or dislocation. The joint spaces are preserved. There is no evidence of erosion. Bone density and texture are normal. No soft tissue swelling is present. Left hand: The osseous structures are intact and well aligned without acutefracture or dislocation. The joint spaces are preserved. There is no evidence of erosion. Bone density and texture are normal. No soft tissue swelling is present. IMPRESSION: Right knee: Normal Left knee: Normal Right foot: No evidence of arthritis. Small plantar calcaneal spur. Moderate size talar spur. Left foot: No evidence of arthritis. Small plantar calcaneal spur. Right hand: Normal Left hand: Normal Dictated by Julianna Oliveira MD (residential fee appraiser). I, Dr. AYAN HAMILTON have personally reviewed and interpreted this examination/study. This report was electronically signed by AYAN HAMILTON on 12/08/2017 3:42 PM . Fili Aldana [facility] Care Teams Supervisor Paint Department Relationship Specialty Start Date End Date Ellis Cueto MD [address] [place] [address] PCP - General 01/31/19
--- OUTSIDE RECORDS SUMMARY | 2024-08-14 12:31 | XMS_ITS | Referral Summary ---
Author Organization [facility] Address [address] [place] [address] Care Team Providers Care C.O.D. Clerk Name Role Phone Ellis Cueto MD Primary Care Provider [phone] Source Comments [facility],non-owned Affiliates and Associated Physician Practices is amultiple site organization consisting of ambulatory clinics and hospital sitesin [place], [place], [place] and [place]. This disclosure is being madepursuant to the Care Everywhere program and may not contain all information available regarding this patient. Last updated 18.[facility] Allergies No known active allergies Medications * Be aware that medications may not be up to date on this document. Alwaysverify current medications with the patient. Medication Sig Dispensed Refills Start Date End Date Status vitamin D, ergocalciferol, (DRISDOL) 36522 UNITS capsule Take 1 capsule by mouth every 10 days 3 10/01/2017 Active propranolol (INDERAL) 80 MG tablet Take 80 mg by mouth once daily Active topiramate (TOPAMAX) 100 MG tablet Take 100 mg by mouth 2 times daily Active rizatriptan, disintegrating, (MAXALT QUICK MIXER OPERATOR) 10 MG tablet Take 10 mg by [...] t be different from the original. Primary Boby Kushal in [place] not in system Problem Noted [...] AFLURIA QUADRIVALENT; 6MO+), 0.5 ML (IIV4) 04/27/2018 Social History Tobacco Use Types Packs/Day Years [...] 01/10/2019 2:32 PM CDT Plan of Treatment Not on [...] Resulting Agency Comment [facility] [address] [facility] [id number] Fili Aldana MD LAB - CHEMISTRY [facility] INSURANCE BILL [address] [place] [address] from Last 3 Months or Most Recently Relevant to Health Maintenance Care Teams C.O.D. Clerk Relationship Specialty Start Date End Date Ellis Cueto MD [facility] [place] [address] PCP - General 01/31/19
--- OUTSIDE RECORDS SUMMARY | 2024-08-14 12:31 | XMS_ITS | Encounter Summary ---
Author Organization [facility] Address [address] [place] [address] Care Team Providers Care Membership Sales Representative Name Role Phone Ellis Cueto MD Primary Care Provider [phone] Ellis Cueto MD Primary Care Provider [phone] Reason for Visit * Reason Onset Date Comments MEDICATION REFILL 07/06/2018 Encounter Details Date Type Department Care Team (Late st Contact Info) Description 07/06/2018 Refill [facility] [address] [place] [address] Fili Aldana MD MEDICATION REFILL Social History Tobacco Use Types Packs/Day Years Used Date Smoking Tobacco: Never Smokeless Tobacco: Never Alcohol Use Standard Drinks/Week Comments Yes 0 (1 standard drink = 0.6 oz pur e alcohol) rarely Sex and Gender Information Value Date Recorded Sex Assigned at Not on file Gender Identity Not on file Sexual Orientation Not on file documented as of this encounter Plan of Treatment Not on file documented as of this encounter Visit Diagnoses Not on filedocumented in this encounter Care Teams Membership Sales Representative Relationship Specialty Start Date End Date Ellis Cueto MD [address] [place] [address] PCP - General 12/07/17 01/09/19 Ellis Cueto MD [address] [place] [address] PCP - General 01/31/19 documented as of this encounter
== END 2024-08-14 12:26 | disposition home or self-care (01) ==
PROVIDERS: PCP Internal Medicine; Visit Provider Nurse Practitioner
DX: Z12.31 Encounter for screening mammogram for malignant neoplasm of breast (principal)
CPT/HCPCS: 77063; 77067

== ENCOUNTER 2024-10-28 00:42 | Day surgery (SDC) | payer OTHER, SELFPAY ==
[2024-10-16 15:04] VITALS: BMI 26.6
--- OUTSIDE RECORDS SUMMARY | 2024-10-28 00:46 | XMS_ITS | Clinical Summary ---
Author Organization [facility] Building Address [address] [place] [address] Care Team Providers Care Computer Tape Librarian Name Role Phone Juhi Carbajal MD Primary Care Provider NehrRasheeda flores ECHOMETER ENGINEER Unavailable [phone] Allergies No known active allergies Medications multivitamin with minerals tablet Take 1 tablet by mouth Active ergocalciferol (VITAMIN D) 50,000 unit capsule TAKE 1 CAPSULE BY MOUTH 3 TIMES MONTHLY WITH A MEAL 01/02/20 20 Active aspirin 81 mg enteric coated tabletIndications: Hyperlipidemia, unspecified hyperlipidemia type TAKE 1 TABLET BY MOUTH EVERY DAY 90 tablet 3 07/29/19 21 Active TURMERIC ORAL Take 1,000 mg by mouth daily Active propranolol LA (INDERAL LA) 80 mg 24 hr capsule Take 1 capsule (80 mg total) by mouth daily 90 capsule 3 02/14/20 24 Active topiramate (TOPAMAX) 100 mg tablet Take 1 tablet (100 mg total) by mouth nightly 90 tablet 3 02/14/20 24 Active hydroxychloroquine (PLAQUENIL) 200 mg tabletIndications: Sjogren's syndrome, with unspecified organ involvement Take 1.5 tablets (300 mg total) by mouth daily 135 tablet 2 06/11/20 24 Active rizatriptan BAKERY CHEF (MAXALT-BAKERY CHEF) 10 mg disintegrating tabletIndications: Chronic migraine without aura, not intractable, without status migrainosus TAKE 1 TAB BY MOUTH ONCE NEEDED FOR MIGRAINE. MAY REPEAT IN 2 HOURS IF UNRESOLVED. MAX 3 TAB/24HR 9 tablet 2 10/16/19 25 Active rizatriptan BAKERY CHEF (MAXALT-BAKERY CHEF) 10 mg disintegrating tabletIndications: Chronic migraine without aura, not intractable, without status migrainosus TAKE 1 TAB BY MOUTH ONCE NEEDED FOR MIGRAINE. MAY REPEAT IN 2 HOURS IF UNRESOLVED. MAX 3 TAB/24HR 9 tablet 2 07/15/19 25 025 Discontinued Active Problems Problem Noted Date Diagnosed Date Sleep concern 08/23/2021 Assessment & Plan (11/22/2021 4:44 PM CDT): Will await sleep study for evaluation of it operations analyst headaches, hypertension, fatigue. Pain in both upper [...] 09/04/2020 Assessment & Plan (09/04/2020 4:36 PM ARCHIVIST MILITARY HISTORY): Has improved with amitriptyline Migraine 03/05/2020 Assessment & Plan (08/23/2021 2:03 PM ARCHIVIST MILITARY HISTORY): 56 year old who presents for follow-up [...] months Assessment & Plan (06/05/2020 4:08 PM ARCHIVIST MILITARY HISTORY): Continues to get about 4 headaches per [...] months, call/message with [facility] [...] meantime. Assessment & Plan (09/04/2020 4:35 PM ARCHIVIST MILITARY HISTORY): Headaches stable although patient remains frustrated they [...] otherwise. Assessment & Plan (08/09/2019 4:38 PM ARCHIVIST MILITARY HISTORY): - stable - continue inderal and maxalt - trial without topamax, if no increase in migraines then remain off of it Primary osteoarthritis involving multiple joints 08/09/2019 Overview (08/09/2019): - pt with OA and Rheumatoid - currently using voltaren gel for hands Assessment & Plan (08/09/2019 4:39 PM ARCHIVIST MILITARY HISTORY): - stable - continue voltaren Gastroesophageal reflux disease without esophagi tis 08/09/2019 Overview (08/09/2019): - pt currently on omeprazole for GERD sx - pt takes med every few days as needed - had previously been on zantac Assessment & Plan (08/09/2019 4:40 PM ARCHIVIST MILITARY HISTORY): - stable - discussed how PPIs work - continue omeprazole for GERD sx Chronic left-sided low back pain with left-sided sciatica 02/06/2019 Hyperlipidemia 02/06/2019 Overview (08/09/2019): - Pt has been on atorvastatin for 6 months. - Pt unable to tolerated 40mg atorvastatin so currently on 20mg; last LDL 182 Assessment & Plan (08/09/2019 4:36 PM ARCHIVIST MILITARY HISTORY): - check lipid test - continue atorvastatin Pain in joint, shoulder region 01/10/2019 Rhinorrhea 01/10/2019 Sensorineural hearing loss (SNHL) of both ears 0 01/10/2019 Tinnitus of both ears 01/10/2019 Pain in soft tissues of limb 12/03/2012 Encounters Date Type Department Care Team Description 09/02/2024 12:04 PM ARCHIVIST MILITARY HISTORY - 09/02/2024 11:59 PM ARCHIVIST MILITARY HISTORY Hospital Encounter [address] [address] Sjogren's syndrome, with unspecified organ involvement Discharge Disposition: Discharge to home or self care 09/02/2024 10:52 AM ARCHIVIST MILITARY HISTORY - 09/02/2024 11:59 PM ARCHIVIST MILITARY HISTORY Hospital Encounter [facility] [address] [place] [address] Selina Masters MD Discharge Disposition: Discharge to home or self care 09/02/2024 10:50 AM ARCHIVIST MILITARY HISTORY Lab [facility] Metabolism and Lipid [address] [place] [address] 5th [place] [address] Sjogren's syndrome, with unspecified organ involvement; High risk medication use; Vitamin D deficiency 09/02/2024 10:00 AM ARCHIVIST MILITARY HISTORY Office Visit [facility] [address] [place] [address] Medicine 5th [place] [address] Selina Masters MD Left foot pain (Primary Dx); Sjogren's syndrome, with unspecified organ involvement; Primary osteoarthritis involving multiple joints; High risk medication use; Migraine without aura and without status migrainosus, not intractable; Vitamin D deficiency 08/08/2024 Documentation [facility] [address] [place] [address] Medicine 5th [place] [address] Lena Sumner CMA Eye Exam from Last 3 Months Immunizations Immunization Administration Dates Next Due DTaP 01/31/2018 Influenza, [...] reflux disease) Vitamin D deficiency Sjogren's disease Migraines 5 years old Family History Medical History Relation Name Comments Heart disease Brother 1 Andrea Hurtado Jr. Hypertension Brother 2 Andrea FerraraeffJr. Heart attack Father Andrea Hurtado Sr. Heart disease Father Andrea Stewarthleff Sr. Cerebral palsy Father's Brother Rowdy Hurtado Arthritis Maternal Grandmother Both grandmothers Heart disease Mother Shannon Hurtado Stroke Mother Shannon Hurtado Hypertension Sister Elina Richards Relation Name Status Comments Brother 1 Andrea Sommerf Jr. Alive Brother 2 Andrea FerraraeffJr. Alive Father Andrea Hurtado Sr. Alive Father's Brother Rowdy Hurtado Maternal Grandmother Both grandmothers Mother Shannon Hurtado Sister Elina Richards Alive Social History Tobacco Use Types Packs/Day [...] staff should administer the PHQ-9) 0 02/14/2024 Comments Unknown Sex and Gender Information Value Date Recorded Sex Assigned at Not on file Legal Sex Female 11:51 PM ARCHIVIST MILITARY HISTORY Gender Identity Female 05/30/2020 7:51 AM ARCHIVIST MILITARY HISTORY Sexual Orientation Straight 05/30/2020 7: 51 AM ARCHIVIST MILITARY HISTORY Obstetrics History Last Filed Vital Signs Vital Sign Reading Time Taken Comments Blood Pressure 136/74 09/02/2024 10:08 AM ARCHIVIST MILITARY HISTORY Pulse 59 09/02/2024 10:08 AM ARCHIVIST MILITARY HISTORY Temperature 36.4 C (97.5 F) 09/02/2024 10:08 AM ARCHIVIST MILITARY HISTORY Respiratory Rate 18 11/22/2021 3:53 PM CDT Oxygen Saturation 97% 02/14/2024 2:28 PM CDT Inhaled Oxygen Concentration - - Weight 74.7 kg (164 lb 9.6 oz) 09/02/2024 10:08 AM ARCHIVIST MILITARY HISTORY Height 165.1 cm (5' 5 ) 09/02/2024 10:08 AM ARCHIVIST MILITARY HISTORY Body Mass Index 27.39 09/02/2024 10:08 AM ARCHIVIST MILITARY HISTORY Plan of Treatment Health Maintenance Due Date Last Done Comments Breast Cancer Screening-Mammogram 1965 Colon Cancer Screening-Colonoscopy 1965 Hepatitis C Screening 1963 Hepatitis B Screening 1981 Pneumococcal vaccine <65 (1 of 2 - PCV) 1982 Covid-19 Vaccine (2023-2 5 season) 2024 04/19/2022, [...] Procedure Name Priority Date/Time Associated Diagnosis Comments XR FOOT LEFT 3 OR MORE VIEWS Schedule Routine, Read Routine (OP Routine) 09/02/2024 10:59 AM ARCHIVIST MILITARY HISTORY Left foot pain URINALYSIS AND REFLEX TO MICROSCOPIC AND CULTURE Routine 09/02/2024 10:44 AM ARCHIVIST MILITARY HISTORY Sjogren's syndrome, with unspecified organ involvement PROTEIN ELECTROPHORESIS, WITH REFLEX, SERUM Routine 09/02/2024 10:40 AM ARCHIVIST MILITARY HISTORY Sjogren's syndrome, with unspecified organ involvement ERYTHROCYTE SEDIMENTATION RATE Routine 09/02/2024 10:40 AM ARCHIVIST MILITARY HISTORY Sjogren's syndrome, with unspecified organ involvement VITAMIN D 25 HYDROXY Routine 09/02/2024 10:40 AM ARCHIVIST MILITARY HISTORY Vitamin D deficiency CRP (ACUTE PHASE) Routine 09/02/2024 10: 40 AM ARCHIVIST MILITARY HISTORY Sjogren's syndrome, with unspecified organ involvement COMPREHENSIVE METABOLIC PANEL Routine 09/02/2024 10:40 AM ARCHIVIST MILITARY HISTORY Sjogren's syndrome, with unspecified organ involvement High risk medication use CBC WITH AUTO DIFFERENTIAL Routine 09/02/2024 10:40 AM ARCHIVIST MILITARY HISTORY Sjogren's syndrome, with unspecified organ involvement High risk medication use HM PAP SMEAR WITH HPV Routine 04/19/2021 from Last 3 Months or Most Recently Relevant to Health Maintenance Results * XR Foot Left 3 or More Views (09/02/2024 10:59 AM ARCHIVIST MILITARY HISTORY) Anatomical Region Laterality Modality Lower Extremities, Foot Left Computed Radiography 09/02/2024 12:0 9 PM ARCHIVIST MILITARY HISTORY Impressions 09/02/2024 12:09 PM ARCHIVIST MILITARY HISTORY 1. Mild left great toe metatarsophalangeal joint osteoarthritis. Electronically signed by: Viktor Jiang M.D. Narrative 09/02/2024 12:09 PM ARCHIVIST MILITARY HISTORY EXAMINATION: XR FOOT LEFT 3 OR MORE VIEWS HISTORY: Left foot pain FINDINGS: 3 view examination of the nonweightbearing left foot is read without comparison. Mild great toe metatarsophalangeal joint osteoarthritis. No fracture or dislocation. Small plantar spur. Procedure Note Pro Jiang, Viktor Del Rosario MD - 09/02/2024 EXAMINATION: XR FOOT LEFT 3 OR MORE VIEWS HISTORY: Left foot pain FINDINGS: 3 view examination of the nonweightbearing left foot is read without comparison. Mild great toe metatarsophalangeal joint osteoarthritis. No fracture or dislocation. Small plantar spur. IMPRESSION: 1. Mild left great toe metatarsophalangeal joint osteoarthritis. Electronically signed by: Vkitor Jiang M.D. us Selina Masters MD IMG XR PROCEDURES Final Resu lt * Urinalysis reflex to microscopic and culture Urine, clean voided (09/02/2024 10:44 AM ARCHIVIST MILITARY HISTORY) Color, ur Straw Yellow Clarity, ur Clear Clear [facility] Specific gravity, ur 1.008 1.003 - 1.030 [facility] pH, urine 7.5 [facility] Comment: Interpretive Data U rine pH is affected by diet, medications, systemic acid-base disturbances, and renal tubular function. pH may affect urinary stone formation. For example, urine pH below 6.0 may help reduce the tendency for calcium phosphate stones and pH greater than 6.0 may reduce the tendency for uric acid stone formation. Source: [employer] Current Interpretive Data was last revised on 2017 Protein, ur ql Negative Negative [facility] Glucose, ur ql Negative Negative [facility] Ketones, ur Negative Negative [facility] Bilirubin, ur Negative Negative [facility] Blood, ur Negative Negative [facility] Urobilinogen, ur <2.0 <2.0 mg/dL [facility] Nitrite, ur Negative Negative [facility] Leukocyte esterase, ur Negative Negative [facility] UA reflex comment Reflex conditions for microscopic UA and culture not met. [facility] Urine, clean voided 09/02/2024 10:44 AM ARCHIVIST MILITARY HISTORY 09/02/2024 2:28 PM ARCHIVIST MILITARY HISTORY us Selina Masters MD LAB MICROBIOLOGY - GENERAL O RDERABLES Final Result [facility] Department [place] [address] * CBC with auto differential (09/02/2024 10:40 AM ARCHIVIST MILITARY HISTORY) White Blood Count 4.1 3.6 - 11.2 K/uL [facility] RBC 4.75 3.63 - 4.92 M/uL [facility] Hemoglobin 14.6 11.9 - 15.5 g/dL [facility] Hematocrit 43.2 36.1 - 44.3 % [facility] MCV 91.0 80.0 - 97.6 fL [facility] MCH 30.8 26.7 - 33.7 pg [facility] MCHC 33.8 32.7 - 35.5 g/dL [facility] RBC Dist Width 13.4 12.3 - 17.0 % [facility] Platelet Count 251 140 - 440 K/uL [facility] MPV 8.4 6.8 - 10.4 fL [facility] Neutrophils % 48.9 38.7 - 74.5 % [facility] Lymphocyte % 38.5 20.0 - 54.3 % [facility] Monocytes % 10.1 4.3 - 13.5 % [facility] Eosinophils % 1.6 0.0 - 6.0 % [facility] Basophil % 0.9 0.0 - 3.0 % [facility] Absolute Neutrophil 2.0 1.8 - 6.6 K/uL [facility] Absolute Lymphocyte 1.6 0.8 - 3.3 K/uL [facility] Absolute Monocyte 0.4 0.2 - 1.2 K/uL [facility] Absolute Eosinophil 0.1 0.0 - 0.5 K/uL [facility] Absolute Basophil 0.0 0.0 - 0.2 K/uL [facility] Nucleated RBC % 0.2 0.0 - 0.4 /100 WBC [facility] Blood 09/02/2024 10:4 0 AM ARCHIVIST MILITARY HISTORY 09/02/2024 11:12 AM ARCHIVIST MILITARY HISTORY us Selina Masters MD LAB BLOOD ORDERABLES Final R esult [facility] * Vitamin D 25 hydroxy (09/02/2024 10:40 AM ARCHIVIST MILITARY HISTORY) Vitamin D 73.7 20.0 - 100.0 ng/mL [facility] Comment: VITAMIN D DEFICIENCY = LESS THAN or EQUAL TO 20 ng/mL VITAMIN D INSUFFICIENCY = 21 - 29 ng/mL VITAMIN D SUFFICIENT = 30-100 ng/mL Blood 09/02/2024 10:4 0 AM ARCHIVIST MILITARY HISTORY 09/02/2024 11:12 AM ARCHIVIST MILITARY HISTORY Selina Masters MD LAB BLOOD ORDERABLES Final R esult [facility] * Erythrocyte sedimentation rate (09/02/2024 10:40 AM ARCHIVIST MILITARY HISTORY) Erythrocyte sedimentation rate 12 1 - 30 mm/hr Blood 09/02/2024 10:4 0 AM ARCHIVIST MILITARY HISTORY 09/02/2024 2:28 PM ARCHIVIST MILITARY HISTORY us Selina Masters MD LAB BLOOD ORDERABLES Final R esult [facility] Department [place] [address] * CRP (acute phase) (09/02/2024 10:40 AM ARCHIVIST MILITARY HISTORY) C-Reactive Protein, Acute <3.0 <5.0 mg/L [facility] Blood 09/02/2024 10:4 0 AM ARCHIVIST MILITARY HISTORY 09/02/2024 11:12 AM ARCHIVIST MILITARY HISTORY us Selina Masters MD LAB BLOOD ORDERABLES Final R esult [facility] * Protein electrophoresis with reflex, serum with interpretation (09/02/2024 10:40 AM ARCHIVIST MILITARY HISTORY) Protein, sr 7.6 6.2 - 8.2 g/dL Albumin 4.9 3.2 - 5.0 g/dL [facility] Alpha-1 globulin 0.2 0.2 - 0.4 g/dL [facility] Alpha-2 globulin 0.6 0.5 - 1.0 g/dL [facility] Beta-1 globulin 0.4 0.3 - 0.6 g/dL [facility] Beta-2 globulin 0.3 0.2 - 0.6 g/dL [facility] Gamma globulin 1.2 0.5 - 1.7 g/dL [facility] SPEP interp Please see comment [facility] Comment: No apparent monoclonal peak Electrophoretic pattern appears similar to previous sample 08/29/2023 Reviewed and signed by Saray Moncada MD, PhD 09/03/2024 Blood 09/02/2024 10:4 0 AM ARCHIVIST MILITARY HISTORY 09/02/2024 2:28 PM ARCHIVIST MILITARY HISTORY us Selina Masters MD LAB BLOOD ORDERABLES Final R esult Performing Organization Address City/[facility]/ZIP Co de Phone Number [facility] Department [place] [address] * Comprehensive metabolic panel (09/02/2024 10:40 AM ARCHIVIST MILITARY HISTORY) Total Protein 7.7 6.1 - 8.4 g/dL [facility] Albumin 4.7 3.5 - 5.2 g/dL [facility] Calcium 10.1 8.6 - 10.3 mg/dL [facility] BUN 19 7 - 23 mg/dL [facility] Total Bilirubin 0.41 0.20 - 1.40 mg/dL [facility] Alk Phos, Total 68 35 - 129 IU/L [facility] AST (SGOT) 24 11 - 47 IU/L [facility] ALT (SGPT) 21 6 - 53 IU/L [facility] Creatinine 0.88 0.60 - 1.10 mg/dL [facility] Sodium 140 135 - 145 mmol/L [facility] Potassium 4.6 3.3 - 5.1 mmol/L [facility] Chloride 103 95 - 107 mmol/L [facility] CO2 Content 26 21 - 29 mmol/L [facility] Glucose 88 64 - 99 mg/dL [facility] Comment: NONFASTING GLUCOSE RANGE = 64-199 mg/dL FASTING GLUCOSE 64 - 99 = NORMAL FASTING GLUCOSE 100 - 125 = IMPAIRED FASTING GLUCOSE FASTING GLUCOSE >=126 = PROVISIONAL DIAGNOSIS OF DIABETES eGFR 74.7 >60.0 mL/min/1.7 3 m2 [facility] Blood 09/02/2024 10:4 0 AM ARCHIVIST MILITARY HISTORY 09/02/2024 11:12 AM ARCHIVIST MILITARY HISTORY Selina Masters MD LAB BLOOD ORDERABLES Final R esult [facility] * PAP SMEAR WITH HPV (04/19/2021) 04/19/2021 Historical Provider HEALTH MAINTENANCE Final Result from Last 3 Months or Most Recently Relevant to Health Maintenance Insurance [facility] CHO[facility] PLUS [facility] PLUS [id number] [id number] [facility] [id number] [facility] CHOICE PLUS Care Teams Computer Tape Librarian Relationship Specialty Start Date End Date Juhi Carbajal MD PCP - General Internal Medicine 01/16/20 Rasheeda Underwood, ECHOMETER ENGINEER [address] [place] [address] Professional Builder Physical Therapy 09/04/23
--- OUTSIDE RECORDS SUMMARY | 2024-10-28 00:46 | XMS_ITS | Clinical Summary ---
Author Organization [facility] Address [address] [place] [address] Care Team Providers Care Rocket Engine Component Mechanic Name Role Phone Ellis Cueto MD Primary Care Provider [phone] Source Comments [facility],non-owned Affiliates and Associated Physician Practices is amultiple site organization consisting of ambulatory clinics and hospital sitesin [place], [place], [place] and [place]. This disclosure is being madepursuant to the Care Everywhere program and may not contain all information available regarding this patient. Last updated 18.[facility] Allergies No known active allergies Medications * Be aware that medications may not be up to date on this document. Alwaysverify current medications with the patient. vitamin D, ergocalciferol, (DRISDOL) 66970 UNITS capsule Take 1 capsule by mouth every 10 days 3 10/02/19 18 Active propranolol (INDERAL) 80 MG tablet Take 80 mg by mouth once daily Active topiramate (TOPAMAX) 100 MG tablet Take 100 mg by mouth 2 times daily Active rizatriptan, disintegrating, (MAXALT CAD ADMINISTRATOR) 10 MG tablet Take 10 mg by [...] as needed Active hydroxychloroquine (PLAQUENIL) 200 MG tabletIndications:Sjogre n's syndrome with keratoconjunctivitis sicca (HCC),RADHA positive,Polyarthralgia TAKE 1.5 TABLETS BY MOUTH ONCE DAILY 135 tablet 2 05/20/20 19 Active Active Problems Patient Care Coordination No te Formatting of this note migh t be different from the original. 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 SERVICE ADVISOR Gender Identity Not on file Sexual Orientation [...] COLON CA SCREENING 1965 LIPID TESTING 1965 HIV SCREENING 1978 HEPATITIS C SCREENING 02/27/1981 PNEUMOCOCCAL VACCINE 50+ (1 of 1 - PCV) 2013 ZOSTER VACCINE (1 of 2) 2013 MAMMOGRAM 05/03/2020 05/03/2018 (Done Outside Per Patient) SCREENING FOR DIABETES 12/18/2021 9, 06/13/2018, 12/07/2017 COVID-19 VACCINE (1 - 2023-2 5 season) 2024 DEPRESSION SCREENING 07/03/2024 INFLUENZA VACCINE (Season Ended) 2025 04/27/2018 DTAP/TDAP/TD VACCINES (2 - Tdap) 02/01/2028 01/31/2018 [...] complete this topic MENINGOCOCCAL (Group B) VACCINE SHARED DECISION-MAKING Aged Out No longer eligible based on patient's age to complete this topic MENINGOCOCCAL GROUPS A/C/Y/W VACCINE Aged Out No longer eligible based on patient's age to complete this topic Procedures Procedure Name Priority Date/Time Associated Diagnosis Comments COMPREHENSIVE METABOLIC PANEL Routine 12/18/2018 2:59 PM CDT Sjogren's syndrome, with unspecified organ involvement Therapeutic drug monitoring Tinnitus of both ears [...] Resulting Agency Comment [facility] [address] [facility] [id number] Fili Aldana MD LAB - CHEMISTRY ORDERABLES Fi nal Result [facility] INSURANCE BILL [address] [place] [address] from Last 3 Months or Most Recently Relevant to Health Maintenance Insurance [facility] Care Teams Rocket Engine Component Mechanic Relationship Specialty Start Date End Date Ellis Cueto MD [address] [place] [address] PCP - General 01/31/19
--- OUTSIDE RECORDS SUMMARY | 2024-10-28 00:46 | XMS_ITS | Continuity of Care Document ---
Author Organization [facility] Address [address] [place] [phone] Phone Care Team Providers Care Scientific Research Manager Name Role Phone Darvin Montgomery MD Unavailable [...] Date Provider Providers Copied on Encounter [facility], [address], [address] [place] [address], tel:[phone] No Information 4 Ulises [place]. [facility], [id number] , [place]. tel: [phone] [facility], [address] [place] [address], [id number], [place] tel:[phone] [facility] No Information 4 Ulises [place]. [address] [place] [address], [id number] , [place]. tel: [phone] [facility], [address] [place] [address], [id number], tel:[phone] [facility] No Information 3 Ulises [place]. [address] [address], [place], [place], [id number] , [place]. tel: [phone] Independent Medical Examination [facility], [address], [place], [place], [id number], tel:[phone] [facility] right shoulder [facility] (chief complaint) PAIN IN LIMBJOINT PAIN-SHLDER 3-201 3 Montgomery Darvin. [address] [facility], [address], [place], [place], [id number] , [place]. tel: [phone] Family History Family Member Type Diagnosis Age At Onset No Information Immunizations Vaccine Date Status Comments Flu (split) (3 yrs or older) administered Source: New Immunization Record Payers Payer name Insurance type Covered green party ID Authoriza tion(s) No Information Social History [...]
--- OUTSIDE RECORDS SUMMARY | 2024-10-28 00:46 | XMS_ITS | Encounter Summary ---
Author Organization [facility] Address [address] [place] [address] Care Team Providers Care Precision Devices Inspector/Tester Name Role Phone Ellis Cueto MD Primary Care Provider [phone] Ellis Cueto MD Primary Care Provider [phone] Reason for Visit * Reason Onset Date Comments MEDICATION REFILL 07/06/2018 Encounter Details Date Type Department Care Team (Late st Contact Info) Description 07/06/2018 Refill [facility] [address] [place] [address] Fili Aldana MD MEDICATION REFILL Social History Tobacco Use Types Packs/Day Years Used Date Smoking Tobacco: Never Smokeless Tobacco: Never Alcohol Use Standard Drinks/Week Comments Yes 0 (1 standard drink = 0.6 oz pur e alcohol) rarely Comments No Sex and Gender Information Value Date Recorded Sex Assigned at Not on file Legal Sex Female 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
--- OUTSIDE RECORDS SUMMARY | 2024-10-28 00:46 | XMS_ITS | Referral Summary ---
Author Organization [facility] Address [address] [place] [id number] Care Team Providers Care Store Management Trainee Name Role Phone Juhi Carbajal MD Primary Care Provider Rasheeda Underwood CATALOGUE CLERK Unavailable [phone] Encounters Date Type Department Care Team Description 09/02/2024 12:04 PM BASKETBALL PLAYER - 09/02/2024 11:59 PM BASKETBALL PLAYER Hospital Encounter [address] [address] Sjogren's syndrome, with unspecified organ involvement Discharge Disposition: Discharge to home or self care 09/02/2024 10:52 AM BASKETBALL PLAYER - 09/02/2024 11:59 PM BASKETBALL PLAYER Hospital Encounter [facility] [address] [place] [id number] Selina Masters MD Discharge Disposition: Discharge to home or self care 09/02/2024 10:50 AM BASKETBALL PLAYER Lab [facility] Metabolism and Lipid [address] [place] [address] 5th [place] [phone] Sjogren's syndrome, with unspecified organ involvement; High risk medication use; Vitamin D deficiency 09/02/2024 10:00 AM BASKETBALL PLAYER Office Visit [facility] 5th [place] [phone] Selina Masters MD Left foot pain (Primary Dx); Sjogren's syndrome, with unspecified organ involvement; Primary osteoarthritis involving multiple joints; High risk medication use; Migraine without aura and without status migrainosus, not intractable; Vitamin D deficiency 08/08/2024 Documentation [facility] [address] [facility] 5th [place] [address] Lena Sumner CMA Eye Exam from Last [...] 135 tablet 2 06/11/20 24 Active rizatriptan COUNTY [employer] AUDITOR ([place] [employer] AUDIT[employer]) 10 mg disintegrating tabletIndications: Chronic migraine without aura, not intractable, without status migrainosus TAKE 1 TAB BY MOUTH ONCE NEEDED FOR MIGRAINE. MAY REPEAT IN 2 HOURS IF UNRESOLVED. MAX 3 TAB/24HR 9 tablet 2 10/16/19 25 Active rizatriptan [place] AUDITOR ([place] AUDITOR) 10 mg disintegrating tabletIndications: Chronic migraine without aura, not intractable, without status migrainosus TAKE 1 TAB BY MOUTH ONCE NEEDED FOR MIGRAINE. MAY REPEAT IN 2 HOURS IF UNRESOLVED. MAX 3 TAB/24HR 9 tablet 2 07/15/19 25 025 Discontinued Active Problems Problem Noted Date Diagnosed Date Sleep concern 08/23/2021 Assessment & Plan (11/22/2021 4:44 PM CDT): Will await sleep study for evaluation of undraped artist model headaches, hypertension, fatigue. Pain in both upper [...] 09/04/2020 Assessment & Plan (09/04/2020 4:36 PM BASKETBALL PLAYER): Has improved with amitriptyline Migraine 03/05/2020 Assessment & Plan (08/23/2021 2:03 PM BASKETBALL PLAYER): 56 year old who presents for follow-up [...] months Assessment & Plan (06/05/2020 4:08 PM BASKETBALL PLAYER): Continues to get about 4 headaches per [...] months, call/message with [facility], [...] meantime. Assessment & Plan (09/04/2020 4:35 PM BASKETBALL PLAYER): Headaches stable although patient remains frustrated they [...] otherwise. Assessment & Plan (08/09/2019 4:38 PM BASKETBALL PLAYER): - stable - continue inderal and maxalt - trial without topamax, if no increase in migraines then remain off of it Primary osteoarthritis involving multiple joints 08/09/2019 Overview (08/09/2019): - pt with OA and Rheumatoid - currently using voltaren gel for hands Assessment & Plan (08/09/2019 4:39 PM BASKETBALL PLAYER): - stable - continue voltaren Gastroesophageal reflux disease without esophagi tis 08/09/2019 Overview (08/09/2019): - pt currently on omeprazole for GERD sx - pt takes med every few days as needed - had previously been on zantac Assessment & Plan (08/09/2019 4:40 PM BASKETBALL PLAYER): - stable - discussed how PPIs work - continue omeprazole for GERD sx Chronic left-sided low back pain with left-sided sciatica 02/06/2019 Hyperlipidemia 02/06/2019 Overview (08/09/2019): - Pt has been on atorvastatin for 6 months. - Pt unable to tolerated 40mg atorvastatin so currently on 20mg; last LDL 182 Assessment & Plan (08/09/2019 4:36 PM BASKETBALL PLAYER): - check lipid test - continue atorvastatin [...] on file Legal Sex Female 11:51 PM BASKETBALL PLAYER Gender Identity Female 05/30/2020 7:51 AM BASKETBALL PLAYER Sexual Orientation Straight 05/30/2020 7: 51 AM BASKETBALL PLAYER Last Filed Vital Signs Vital Sign Reading Time Taken Comments Blood Pressure 136/74 09/02/2024 10:08 AM BASKETBALL PLAYER Pulse 59 09/02/2024 10:08 AM BASKETBALL PLAYER Temperature 36.4 C (97.5 F) 09/02/2024 10:08 AM BASKETBALL PLAYER Respiratory Rate 18 11/22/2021 3:53 PM CDT Oxygen Saturation 97% 02/14/2024 2:28 PM CDT Inhaled Oxygen Concentration - - Weight 74.7 kg (164 lb 9.6 oz) 09/02/2024 10:08 AM BASKETBALL PLAYER Height 165.1 cm (5' 5 ) 09/02/2024 10:08 AM BASKETBALL PLAYER Body Mass Index 27.39 09/02/2024 10:08 AM BASKETBALL PLAYER Plan of Treatment Not on file Procedures Procedure Name Priority Date/Time Associated Diagnosis Comments XR FOOT LEFT 3 OR MORE VIEWS Schedule Routine, Read Routine (OP Routine) 09/02/2024 10:59 AM BASKETBALL PLAYER Left foot pain URINALYSIS AND REFLEX TO MICROSCOPIC AND CULTURE Routine 09/02/2024 10:44 AM BASKETBALL PLAYER Sjogren's syndrome, with unspecified organ involvement PROTEIN ELECTROPHORESIS, WITH REFLEX, SERUM Routine 09/02/2024 10:40 AM BASKETBALL PLAYER Sjogren's syndrome, with unspecified organ involvement ERYTHROCYTE SEDIMENTATION RATE Routine 09/02/2024 10:40 AM BASKETBALL PLAYER Sjogren's syndrome, with unspecified organ involvement VITAMIN D 25 HYDROXY Routine 09/02/2024 10:40 AM BASKETBALL PLAYER Vitamin D deficiency CRP (ACUTE PHASE) Routine 09/02/2024 10: 40 AM BASKETBALL PLAYER Sjogren's syndrome, with unspecified organ involvement COMPREHENSIVE METABOLIC PANEL Routine 09/02/2024 10:40 AM BASKETBALL PLAYER Sjogren's syndrome, with unspecified organ involvement High risk medication use CBC WITH AUTO DIFFERENTIAL Routine 09/02/2024 10:40 AM BASKETBALL PLAYER Sjogren's syndrome, with unspecified organ involvement High risk medication use HM PAP SMEAR WITH HPV Routine 04/19/2021 from Last 3 Months or Most Recently Relevant to Health Maintenance Results * XR Foot Left 3 or More Views (09/02/2024 10:59 AM BASKETBALL PLAYER) Anatomical Region Laterality Modality Lower Extremities, Foot Left Computed Radiography 09/02/2024 12:0 9 PM BASKETBALL PLAYER Impressions 09/02/2024 12:09 PM BASKETBALL PLAYER 1. Mild left great toe metatarsophalangeal joint osteoarthritis. Electronically signed by: Viktor Jiang M.D. Narrative 09/02/2024 12:09 PM BASKETBALL PLAYER EXAMINATION: XR FOOT LEFT 3 OR MORE [...] osteoarthritis. Electronically signed by: Viktor Jiang M.D. us Selina Masters MD IMG XR PROCEDURES Final Resu lt * Urinalysis reflex to microscopic and culture Urine, clean voided (09/02/2024 10:44 AM BASKETBALL PLAYER) Color, ur Straw Yellow Clarity, ur Clear Clear [facility] Specific gravity, ur 1.008 1.003 - 1.030 [facility] pH, urine 7.5 [facility] Comment: Interpretive Data U rine pH is affected by diet, medications, systemic acid-base disturbances, and renal tubular function. pH may affect urinary stone formation. For example, urine pH below 6.0 may help reduce the tendency for calcium phosphate stones and pH greater than 6.0 may reduce the tendency for uric acid stone formation. Source: [place] [facility] Current Interpretive Data was last revised on 2017 Protein, ur ql Negative Negative [facility] Glucose, ur ql Negative Negative [facility] Ketones, ur Negative Negative [facility] Bilirubin, ur Negative Negative [facility] Blood, ur Negative Negative [facility] Urobilinogen, ur <2.0 <2.0 mg/dL [facility] Nitrite, ur Negative Negative [facility] Leukocyte esterase, ur Negative Negative [facility] UA reflex comment Reflex conditions for microscopic UA and culture not met. [facility] Urine, clean voided 09/02/2024 10:44 AM BASKETBALL PLAYER 09/02/2024 2:28 PM BASKETBALL PLAYER us Selina Masters MD LAB MICROBIOLOGY - GENERAL O RDERABLES Final Result [facility] Department [place] [address] * CBC with auto differential (09/02/2024 10:40 AM BASKETBALL PLAYER) White Blood Count 4.1 3.6 - 11.2 [...] - [facility] Blood 09/02/2024 10:4 0 AM BASKETBALL PLAYER 09/02/2024 11:12 AM BASKETBALL PLAYER us Selina Masters MD LAB BLOOD ORDERABLES Final R esult [facility] * Vitamin D 25 hydroxy (09/02/2024 10:40 AM BASKETBALL PLAYER) Vitamin D 73.7 20.0 - 100.0 ng/mL [facility] Comment: VITAMIN D DEFICIENCY = LESS THAN or EQUAL TO 20 ng/mL VITAMIN D INSUFFICIENCY = 21 - 29 ng/mL VITAMIN D SUFFICIENT = 30-100 ng/mL Blood 09/02/2024 10:4 0 AM BASKETBALL PLAYER 09/02/2024 11:12 AM BASKETBALL PLAYER us Selina Masters MD LAB BLOOD ORDERABLES Final R esult [facility] * Erythrocyte sedimentation rate (09/02/2024 10:40 AM BASKETBALL PLAYER) Erythrocyte sedimentation rate 12 1 - 30 mm/hr Blood 09/02/2024 10:4 0 AM BASKETBALL PLAYER 09/02/2024 2:28 PM BASKETBALL PLAYER us Selina Masters MD LAB BLOOD ORDERABLES Final R esult [facility] Department [place] [address] * CRP (acute phase) (09/02/2024 10:40 AM BASKETBALL PLAYER) C-Reactive Protein, Acute <3.0 <5.0 mg/L [facility] Blood 09/02/2024 10:4 0 AM BASKETBALL PLAYER 09/02/2024 11:12 AM BASKETBALL PLAYER us Selina Masters MD LAB BLOOD ORDERABLES Final R esult [facility] * Protein electrophoresis with reflex, serum with interpretation (09/02/2024 10:40 AM BASKETBALL PLAYER) Protein, sr 7.6 6.2 - 8.2 g/dL Albumin 4.9 3.2 - 5.0 g/dL [facility] Alpha-1 globulin 0.2 0.2 - 0.4 g/dL [facility] Alpha-2 globulin 0.6 0.5 - 1.0 g/dL [facility] Beta-1 globulin 0.4 0.3 - 0.6 g/dL [facility] Beta-2 globulin 0.3 0.2 - 0.6 g/dL [facility] Gamma globulin 1.2 0.5 - 1.7 g/dL [facility] SPEP interp Please see comment [facility] Comment: No apparent monoclonal peak Electrophoretic pattern appears similar to previous sample 08/29/2023 Reviewed and signed by Saray Moncada MD, PhD 09/03/2024 Blood 09/02/2024 10:4 0 AM BASKETBALL PLAYER 09/02/2024 2:28 PM BASKETBALL PLAYER us Selina Masters MD LAB BLOOD ORDERABLES Final R esult [facility] [place] [address] * Comprehensive metabolic panel (09/02/2024 10:40 AM BASKETBALL PLAYER) Total Protein 7.7 6.1 - 8.4 g/dL [...] - [facility] Blood 09/02/2024 10:4 0 AM BASKETBALL PLAYER 09/02/2024 11:12 AM BASKETBALL PLAYER Selina Masters MD LAB BLOOD ORDERABLES Final R esult [facility] * HM PAP SMEAR WITH HPV (04/19/2021) 04/19/2021 Historical Provider HEALTH MAINTENANCE Final Result from Last 3 Months or Most Recently Relevant to Health Maintenance Insurance [facility] Address: [address] [address] [facility]O Address: [address] [id number]PPO Address: [facility] [address] [place] [address] [facility] [address] [facility] [phone] [facility] H[facility]/PPO Address: [address] [address] [place] [address] Care Teams Store Management Trainee Relationship Specialty Start Date End Date Juhi Carbajal MD PCP - General Internal Medicine 01/16/20 Rasheeda Underwood, CATALOGUE CLERK [address] [place] [address] Motor Coach Operator Physical Therapy 09/04/23
[2024-10-28 10:31] VITALS: BP 129/46; PULSE 67; RESP 16; TEMP 36.1; O2SAT 100; BMI 26.8
[2024-10-28] MEDS: LACTATED RINGERS 1,000 ML 150 ML IV CONT (10:42)
--- NOTE | 2024-10-28 11:18 | P.PNAN_ITS ---
Anes - Initial Pre Proc Eval Procedure: Operation Date: 10/28/24 11:30 Proposed Procedures p Screening Colonoscopy - Zack Ray MD Date/Time: 10/28/24 11:18 Surgeon: Zack Ray MD Pre Op Diagnosis: Screening Patient Data Age: 59 Gender: F Height: 1.65 m Weight: 73.2 kg Last Vital Signs Temp 97 F L 10/28/24 10:31 Pulse 67 10/28/24 10:31 Resp 16 10/28/24 10:31 BP 129/46 L 10/28/24 10:31 Pulse Ox 100 10/28/24 10:31 O2 Del Method Room Air 10/28/24 10:31 Allergies Allergy/AdvReac Type Severity Reaction Status Date / Time No Known Allergies Allergy Verified 10/28/24 10:29 Home Medications ?Medication ?Instructions ?Recorded ?Confirmed ?Type aspirin 81 mg capsule 81 mg PO DAILY 10/16/24 10/28/24 History hydroxychloroquine 200 mg tablet 150 mg PO DAILY 10/16/24 10/28/24 History propranolol 80 mg capsule,24 80 mg PO DAILY 10/16/24 10/28/24 History hr,extended release topiramate 100 mg tablet 100 mg PO DAILY 10/16/24 10/28/24 History Patient hx anesthesia problems: none Family hx anesthesia problems: none Results Review: All pre-operative results and documents have been reviewed as part of the pre- operative evaluation. [facility], [facility] Social History Social History Smoking status: Never smoker Substance use type: does not use Living arrangements: with family Spiritual care concerns: No Anes - Eval Final PreProcedure Day of Procedure 10/28/24 11:18 Patient weight: overweight Lungs: normal air movement Airway: Mallampati scale class II Neurological: alert and oriented Last oral intake: >/= 8 hours ASA classification: II Emergent: no Anesthetic plan: proceed Anesthesia type and monitoring: general GIVS and standard monitoring Results Review: All pre-operative results and documents have been reviewed as part of the pre- operative evaluation. Migranes by hx, on b barbara. Informed Consent: The patient's anesthetic plan and its attendant risks and benefits were discussed with the patient/family/POA. Questions were solicited and answers provided to the satisfaction of the patient/family/POA.
--- NOTE | 2024-10-28 12:20 | PM.IMHP ---
H&P: HPI History of Present Illness Date/Time: 10/28/24 12:20 Chief Complaint: screening colonoscopy Narrative: This is the patient's first colonoscopy. There are no GI symptoms and there is no family history of colorectal cancer. Review of Systems Review of Systems: All systems reviewed & are unremarkable except as noted in HPI and below [facility] Social History Social History Smoking status: Never smoker Substance use type: does not use Living arrangements: with family Spiritual care concerns: No Meds Home Medications and Allergies Home Medications ?Medication ?Instructions ?Recorded ?Confirmed ?Type aspirin 81 mg capsule 81 mg PO DAILY 10/16/24 10/28/24 History hydroxychloroquine 200 mg tablet 150 mg PO DAILY 10/16/24 10/28/24 History propranolol 80 mg capsule,24 80 mg PO DAILY 10/16/24 10/28/24 History hr,extended release topiramate 100 mg tablet 100 mg PO DAILY 10/16/24 10/28/24 History Allergies Allergy/AdvReac Type Severity Reaction Status Date / Time No Known Allergies Allergy Verified 10/28/24 10:29 Vital Signs Vital Signs - 24 hr 10/28/24 10:31 Temperature 97 F L Pulse Rate 67 Respiratory Rate 16 Blood Pressure 129/46 L Pulse Oximetry 100 Oxygen Delivery Room Air Exam Const: General: cooperative and healthy appearing Resp: Effort & Inspection: normal respiratory effort and able to speak in complete sentences Auscultation: clear to auscultation bilaterally Cardio: Rate: regular rate Rhythm: regular rhythm GI: Inspection: normal to inspection GI Palp: No No hepatosplenomegaly present Auscultation: normal bowel sounds Rectal Exam: deferred Skin: General skin exam: normal color Psych: Appearance: grossly normal Mental Status: mental status grossly normal Assessment and Plan Assessment and plan (1) Encounter for screening colonoscopy: Code(s): Z12.11 - Encounter for screening for malignant neoplasm of colon Status: Acute Assessment and Plan: The patient is deemed a good candidate for the procedure. Consent signed. Will proceed.
[2024-10-28 12:46] VITALS: BP 122/60; PULSE 67; RESP 18; O2SAT 100
[2024-10-28 12:56] VITALS: BP 135/69; PULSE 67; RESP 23; O2SAT 100
[2024-10-28 13:06] VITALS: BP 144/66; PULSE 57; RESP 21; O2SAT 100
== END 2024-10-28 13:11 | disposition home or self-care (01) ==
PROVIDERS: PCP Internal Medicine; Referring Provider Nurse Practitioner; Visit Provider Internal Medicine Gastroenterology
PROC: 0DJD8ZZ Inspection of Lower Intestinal Tract, Via Natural or Artificial Opening Endoscopic (ICD-10-PCS; CPT 45378; principal; 2024-10-28 11:30)
DX: Z12.11 Encounter for screening for malignant neoplasm of colon (principal); D12.5 Benign neoplasm of sigmoid colon; K63.89 Other specified diseases of intestine; Z79.82 Long term (current) use of aspirin
CPT/HCPCS: 45385; 88305; J2003; J2704; J7120